=== PATIENT | male | born 1950 | race Caucasian/White ===

== ENCOUNTER 2022-11-05 08:59 | Outpatient (OUT) | payer MEDICARE, SELFPAY | END 2022-11-05 09:00 | disposition home or self-care (01) | LOC: LAB 09:07 | PROVIDERS: PCP Internal Medicine | DX: R97.20 Elevated prostate specific antigen [PSA] (principal) | CPT/HCPCS: 36415; 84153 ==

== ENCOUNTER 2023-07-22 09:17 | Outpatient (RCR) | payer MEDICARE, SELFPAY | END 2023-08-15 11:18 | disposition home or self-care (01) | LOC: PT 09:17 | PROVIDERS: PCP Internal Medicine; Visit Provider Internal Medicine | DX: M25.551 Pain in right hip (principal) | CPT/HCPCS: 97110; 97113; 97140; 97162 ==

== ENCOUNTER 2023-08-10 11:19 | Outpatient (OUT) | payer MEDICARE, SELFPAY | END 2023-08-10 11:20 | disposition home or self-care (01) | LOC: PST 11:19 | PROVIDERS: PCP Internal Medicine; Visit Provider Surgery | DX: Z01.818 Encounter for other preprocedural examination (principal) ==

== ENCOUNTER 2023-08-21 07:44 | Day surgery (SDC) | payer MEDICARE, SELFPAY ==
[2023-08-21 08:11] VITALS: BP 153/61; PULSE 77; TEMP 36.1; O2SAT 97; BMI 39.2
[2023-08-21 08:11] LABS: Glucometer 182 mg/dL (74-106)
--- NOTE | 2023-08-21 08:15 | PC.NURSE ---
No bruising or openings noted on back from fall this AM
[2023-08-21] MEDS: LACTATED RINGER'S SOLUTION 1,000 ML 50 ML IV (08:33)
[2023-08-21 10:21] VITALS: BP 108/62; PULSE 68; O2SAT 96
--- NOTE | 2023-08-21 10:26 | PM.GSPRC ---
Date of procedure: 08/21/23 Indications for Procedure: positive cologuard and 1st degree relative with from colon cancer in his 40s Pre-op diagnosis: + cologuard, high risk patient for colon cancer given family Hx Post-op diagnosis: other (83cm subcentimeter polyp removed with hot snare biopsy forceps, mild sigmoid diverticulosis ) Procedure: Previous colonoscopy: 2012 PROCEDURE: The patient was given IV conscious sedation per anesthesia.? The patient's SPO2 remained above 90% throughout the procedure. The colonoscope was inserted per rectum and advanced under direct vision to the cecum without difficulty.? The prep was adequate.? Findings: Terminal ileum os: normal Cecum/Ascending colon: normal Transverse colon: normal Descending/Sigmoid colon: 83cm subcentimeter polyp removed with hot snare biopsy forceps, mild diverticulosis Rectum/Anus: examined in normal and retroflexed positions and was normal Withdrawal Time was (minutes): 18 The colon was decompressed and the scope was removed.? The patient tolerated the procedure well. Recommendations/Plan: 1.? Lifestyle and dietary modifications as discussed 2.? F/U Biopsies 3.? F/U in clinic to discuss repeat c-scope timing, at least will be recommended for 5 year repeat as of now 4.? Discussed with the family Findings: 83cm subcentimeter polyp removed with hot snare biopsy forceps, mild sigmoid diverticulosis Anesthesia: MAC Surgeon: Herbert Nova Procedure Summary: diagnostic colonoscopy with 83cm subcentimeter polyp removed with hot snare biopsy forceps, Estimated blood loss (mL): 2 Specimens: 83cm subcentimeter polyp sent for pathology Complications: Yes Pathology: other Condition: stable Disposition: PACU
[2023-08-21 10:40] VITALS: BP 118/65; PULSE 62; O2SAT 95
== END 2023-08-21 10:59 | disposition home or self-care (01) ==
PROVIDERS: PCP Internal Medicine; Visit Provider Surgery
PROC: (CPT 45385; principal; 2023-08-21 09:30)
DX: R19.5 Other fecal abnormalities (principal); K57.30 Diverticulosis of large intestine without perforation or abscess without bleeding; Z80.0 Family history of malignant neoplasm of digestive organs; D12.5 Benign neoplasm of sigmoid colon; Z86.010 Personal history of colon polyps; Z79.82 Long term (current) use of aspirin; Z79.84 Long term (current) use of oral hypoglycemic drugs; Z79.899 Other long term (current) drug therapy; J45.909 Unspecified asthma, uncomplicated; E11.9 Type 2 diabetes mellitus without complications; I10 Essential (primary) hypertension; E78.00 Pure hypercholesterolemia, unspecified; N42.9 Disorder of prostate, unspecified; Z96.643 Presence of artificial hip joint, bilateral; Z95.1 Presence of aortocoronary bypass graft; Z98.52 Vasectomy status; I25.10 Atherosclerotic heart disease of native coronary artery without angina pectoris; G47.33 Obstructive sleep apnea (adult) (pediatric)
CPT/HCPCS: 45385; 36415; 82948; 88305; 99999; J2704

== ENCOUNTER 2023-08-27 16:57 | Emergency (ER) | payer MEDICARE, SELFPAY ==
[2023-08-27] VITALS (18 sets, daily range): BP systolic 149–202; BP diastolic 78–101; PULSE 73–90; TEMP 37.1; O2SAT 94–97; BMI 39.5
--- NOTE | 2023-08-27 17:30 | ECG_ITS ---
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
--- NOTE | 2023-08-27 17:32 | ED.DIZZY1 ---
HPI - Dizziness General Chief Complaint: Dizziness Stated Complaint: VERTIGO Time Seen by Provider: 08/27/23 17:02 Source: patient Mode of arrival: walk-in Limitations: no limitations History of Present Illness HPI Narrative: Patient has been experiencing dizziness for the last 2 months. He told me that he has been evaluated several times by Dr Ríos. He was all over the place with his story to the point where I had to tell him to start over and I had to diagram everything on the white board to review with him. He has not had any out-patient testing. he describes intermittent episodes of dizziness - sometimes described as spinning - like a classic vertigo - and other times described as sensation that he is going to pass out - like near-syncope. None of these episodes are associated with headache, chest pain, palpitations or shortness of breath. He denied ringing in the ears. he also denied recent visual changes - he told me about his cataracts and that occasionally his vision for the last several years will not be clear. He was prescribed doxycycline and oral steroid on 08/19/23 but did not start them until 08/21/23 after his colonoscopy and continued to take them until he saw Dr Ríos on 08/26/23. he complained that he was still having dizziness and Dr Ríos let him know that the prescribed meclizine was for dizziness, so the patient took his first dose yesterday afternoon and it helped. But this morning he became profoundly dizzy after eating breakfast and having coffee at [facility] and the meclizine did not help. He is also concerned because his legs were very weak and I had trouble getting around even after I got home - he says both legs are equally weak. Related Data Home Medications ?Medication ?Instructions ?Recorded ?Confirmed aspirin 81 mg tablet,delayed 81 mg PO DAILY 08/10/23 08/27/23 release (Adult Aspirin Regimen) atorvastatin 40 mg tablet 40 mg PO DAILY 08/10/23 08/27/23 carvedilol 25 mg tablet 25 mg PO Q12H 08/10/23 08/27/23 doxazosin 2 mg tablet 2 mg PO QPM 08/10/23 08/27/23 finasteride 5 mg tablet 5 mg PO DAILY 08/10/23 08/27/23 ipratropium 0.5 mg-albuterol 3 mg 3 ml inhalation Q6H PRN shortness 08/10/23 08/27/23 (2.5 mg base)/3 mL nebulization of breath or wheezing soln montelukast 10 mg tablet 10 mg PO DAILY 08/10/23 08/27/23 ramipril 10 mg capsule 10 mg PO BID 08/10/23 08/27/23 semaglutide 1 mg/dose (4 mg/3 mL) 1 mg subcut QWEEK 08/10/23 08/27/23 subcutaneous pen injector (Ozempic) tamsulosin 0.4 mg capsule 0.4 mg PO Q24H 08/10/23 08/27/23 dexamethasone 4 mg tablet 4 mg PO Q24H 08/27/23 08/27/23 doxycycline monohydrate 100 mg 100 mg PO Q12H 08/27/23 08/27/23 capsule meclizine 12.5 mg tablet 12.5 mg PO TID PRN dizziness 08/27/23 08/27/23 Allergies Allergy/AdvReac Type Severity Reaction Status Date / Time No Known Drug Allergies Allergy Verified 08/10/23 11:37 [facility] Medical History (Updated 08/27/23 @ 18:17 by Valerio Maher) COVID-19 ?U07.1 - COVID-19 (ICD-10) Bronchitis ?J40 - Bronchitis, not specified as acute or chronic (ICD-10) Pneumonia ?J18.9 - Pneumonia, unspecified organism (ICD-10) Hypoglycemia ?E16.2 - Hypoglycemia, unspecified (ICD-10) Kidney stones ?N20.0 - Calculus of kidney (ICD-10) GERD (gastroesophageal reflux disease) ?K21.9 - Gastro-esophageal reflux disease without esophagitis (ICD-10) Extremity edema ?R60.0 - Localized edema (ICD-10) Hypotension after procedure ?I95.81 - Postprocedural hypotension (ICD-10) Shingles ?B02.9 - Zoster without complications (ICD-10) Prostate disease ?N42.9 - Disorder of prostate, unspecified (ICD-10) Hypercholesteremia ?E78.00 - Pure hypercholesterolemia, unspecified (ICD-10) CAD (coronary artery disease) ?I25.10 - Atherosclerotic heart disease of [place] coronary artery without angina pectoris (ICD-10) DVT (deep venous thrombosis) ?I82.409 - Acute embolism and thrombosis of unspecified deep veins of unspecified lower extremity (ICD-10) Diabetes ?E11.9 - Type 2 diabetes mellitus without complications (ICD-10) Hypertension ?I10 - Essential (primary) hypertension (ICD-10) ADDISON (obstructive sleep apnea) ?G47.33 - Obstructive sleep apnea (adult) (pediatric) (ICD-10) Asthma ?J45.909 - Unspecified asthma, uncomplicated (ICD-10) Colon polyp ?K63.5 - Polyp of colon (ICD-10) Positive colorectal cancer screening using Cologuard test ?R19.5 - Other fecal abnormalities (ICD-10) Surgical History (Updated 08/10/23 @ 11:46 by Cathy Honeycutt NP) S/P epidural steroid injection ?Z92.241 - Personal history of systemic steroid therapy (ICD-10) History of surgical removal of skin lesion ?Z98.890 - Other specified postprocedural states (ICD-10) ?Z87.2 - Personal history of diseases of the skin and subcutaneous tissue (ICD-10) H/O vasectomy ?Z98.52 - Vasectomy status (ICD-10) H/O shoulder surgery ?Z98.890 - Other specified postprocedural states (ICD-10) S/P meniscectomy ?Z98.890 - Other specified postprocedural states (ICD-10) History of cardiac catheterization ?Z98.890 - Other specified postprocedural states (ICD-10) History of bilateral hip arthroplasty ?Z96.643 - Presence of artificial hip joint, bilateral (ICD-10) Hx of CABG (~07/2015) ?Z95.1 - Presence of aortocoronary bypass graft (ICD-10) H/O colonoscopy ?Z98.890 - Other specified postprocedural states (ICD-10) Family History (Updated 08/10/23 @ 11:46 by Cathy Honeycutt NP) Other Colon cancer Family history of diabetes mellitus Family history of heart disease Family history of hypertension Family history of myocardial infarction Family history of stroke Social History (Updated 08/21/23 @ 08:37 by Brandy Harris) Within the past year, how often did you have a drink containing alcohol: never Score interpretation: A score less than 4 is consistent with normal alcohol consumption. Smoking status: Never smoker Non-prescribed substance use: denies use Highest level of school completed/degree received: high school graduate Exam Narrative Exam Narrative: Nurses notes and vital signs reviewed and patient is not hypoxic. afebrile General: Well-appearing and in no apparent distress. Skin: Warm, dry, no pallor noted. No rash. Head: Normocephalic, atraumatic. Neck: Supple, non-tender. Eye: Pupils are equal, round and EOMI. No scleral icterus. Ears, Nose, Mouth, and Throat: TM are clear, no posterior oropharynx erythema or nasal mucosal hypertrophy, uvula is mid-line Oral mucosa is dry Cardiovascular: Regular Rate and Rhythm without murmur, gallop or rub. Respiratory: No accessory muscle use or respiratory distress. Lungs are clear to auscultation, no wheezing, rales or rhonchi Musculoskeletal: normal ROM, no calf or popliteal tenderness, no lower extremity edema/swelling GI: Abdomen is soft, non-distended. Normal bowel sounds. No tenderness to palpation. No rebound, guarding, or rigidity noted. Neurological: A&O x4. No cranial nerve dysfunction observed. No truncal ataxia. Moves all extremities. Sensation intact. Psychiatric: Cooperative and interactive. Normal mood and affect. Constitutional Vital Signs, click to edit/add: Last Vital Signs Temp 98.7 F 08/27/23 17:08 Pulse 75 08/27/23 18:50 Resp 15 08/27/23 18:50 BP 161/101 H 08/27/23 18:30 Pulse Ox 94 L 08/27/23 17:30 O2 Del Method Room Air 08/27/23 17:08 Course Vital Signs Vital signs: Vital Signs Pulse Oximetry 96 08/27/23 17:05 Temperature 98.7 F 08/27/23 17:08 Pulse Rate 75 08/27/23 18:50 Respiratory Rate 15 08/27/23 18:50 Blood Pressure 161/101 H 08/27/23 18:30 Pulse Oximetry 94 L 08/27/23 17:30 Oxygen Delivery Method Room Air 08/27/23 17:08 MDM - Dizziness MDM Narrative Medical decision making narrative: Patient was placed on residential program manager and EKG obtained. Blood drawn and sent for evaluation. He was sent for CT scanning of the brain in light of this new bilateral lower extremity weakness as well as continued dizziness . CT head was negative for worrisome pathology. CBC normal. BMP with normal electrolytes except for slightly low NA at 133 but glucose was markedly elevated at 492. Patient does not take insulin - he gets once weekly semaglutide injections. He told me that he had previously been taking metformin but stopped because it was giving me non-stop diarrhea . He told me that he believe(s) that I had blood drawn in May and my HbA1c was 9 and was around 7 the year before . He has never been prescribed insulin. Patient informed of results and was given 15 units SQ regular insulin. His recent dexamethasone use certainly could contribute to his elevated glucose level. He was discharged home and instructed to call his PCP to discuss his hyperglycemia and any additional meds to prescribe =-whether oral hypoglycemics or to start insulin. ED return if he worsens. Medical Records Attestation: I reviewed the patient's medical records. Lab Data Attestation: I reviewed the patient's lab results. Labs: Lab Results 08/27/23 Range/Units 17:10 WBC 9.7 (4.0-11.0) 10^3/uL RBC 5.51 (4.70-6.10) 10^6/uL Hgb 15.4 (14.0-18.0) g/dL Hct 47.1 (42.0-54.0) % MCV 85.5 (80.0-94.0) fL MCH 27.9 (25.9-34.0) pg MCHC 32.7 (29.9-35.2) g/dL RDW 13.2 (11.0-15.0) % Plt Count 259 (150-450) 10^3/uL MPV 10.6 (9.5-13.5) fL Neut % (Auto) 85.4 H (43.0-75.0) % Lymph % (Auto) 8.9 L (20.5-60.0) % [place] % (Auto) 4.7 (1.7-12.0) % Eos % (Auto) 0.0 L (0.9-7.0) % Baso % (Auto) 0.1 L (0.2-2.0) % Neut # (Auto) 8.3 H (1.4-6.5) 10^3/uL Lymph # (Auto) 0.9 L (1.2-3.8) 10^3/uL [place] # (Auto) 0.5 (0.3-0.8) 10^3/uL Eos # (Auto) 0.0 (0.0-0.7) 10^3/uL Baso # (Auto) 0.0 (0.0-0.1) 10^3/uL Abs Immat Gran (auto) 0.09 H (0.00-0.03) 10^3/uL Imm/Tot Granulo (auto) 0.9 H (0.0-0.5) % Sodium 133 L (136-145) mmol/L Potassium 4.6 (3.5-5.1) mmol/L Chloride 98 (98-107) mmol/L Carbon Dioxide 23.8 (21.0-32.0) mmol/L Anion Gap 15.8 BUN 18.0 (7.0-18.0) mg/dL Creatinine 1.22 (0.70-1.30) mg/dL Est GFR ( Amer) >60 (>=60) Est GFR (Non-Af Amer) 58 L (>=60) BUN/Creatinine Ratio 14.8 Glucose 492 H (74-106) mg/dL Calcium 9.6 (8.5-10.1) mg/dL Imaging Data CT scan - head: Attestation: I have reviewed the pertinent imaging results. Radiologist's impression: ITS Impressions Brain CT 08/27/23 17:40 IMPRESSION: No acute intracranial process is noted. Electronically authenticated by: JARROD DALE Date: 08/27/2023 17:58 ECG Data Attestation: I personally reviewed and interpreted this ECG as follows: Interpretation: EKG interpretation: Emergency Department physician interpretation. Normal sinus rhythm at 81bpm. Normal axis, normal intervals and no ST segment elevation or depression. Discharge Plan Discharge Stand Alone Forms: Portal Instructions Chief Complaint: Dizziness Clinical Impression: Acute hyperglycemia, Dizziness Patient Disposition: Home, Self-Care Time of Disposition Decision: 18:45 Prescriptions / Home Meds: No Action dexamethasone 4 mg tablet 4 mg PO Q24H doxycycline monohydrate 100 mg capsule 100 mg PO Q12H meclizine 12.5 mg tablet 12.5 mg PO TID PRN (Reason: dizziness) atorvastatin 40 mg tablet 40 mg PO DAILY carvedilol 25 mg tablet 25 mg PO Q12H doxazosin 2 mg tablet 2 mg PO QPM finasteride 5 mg tablet 5 mg PO DAILY ipratropium-albuterol 0.5 mg-3 mg(2.5 mg base)/3 mL solution for nebulization 3 ml INHALATION Q6H PRN (Reason: shortness of breath or wheezing) montelukast 10 mg tablet 10 mg PO DAILY ramipril 10 mg capsule 10 mg PO BID Ozempic 1 mg/dose (4 mg/3 mL) pen injector 1 mg SUBCUT QWEEK tamsulosin 0.4 mg capsule 0.4 mg PO Q24H aspirin [Adult Aspirin Regimen] 81 mg tablet,delayed release (DR/EC) 81 mg PO DAILY Print Language: Latvian Instructions: Dizziness (ED), Diabetic Hyperglycemia (ED) Referrals: MAC RÍOS MD [Primary Care Provider] - 1 week
[2023-08-27 17:37] LABS: Basophils Percent Auto 0.1 % (0.2-2.0); Hematocrit 47.1 % (42.0-54.0); Hemoglobin 15.4 g/dL (14.0-18.0); Immature Granulocytes Abs Auto 0.09 10^3/uL (0.00-0.03); Immature Granulocytes Pct Auto 0.9 % (0.0-0.5); Lymphocytes Absolute Auto 0.9 10^3/uL (1.2-3.8); Lymphocytes Percent Auto 8.9 % (20.5-60.0); Mean Corpuscular HGB Conc 32.7 g/dL (29.9-35.2); Mean Corpuscular Hemoglobin 27.9 pg (25.9-34.0); Mean Corpuscular Volume 85.5 fL (80.0-94.0); Mean Platelet Volume 10.6 fL (9.5-13.5); Monocytes Absolute Auto 0.5 10^3/uL (0.3-0.8); Monocytes Percent Auto 4.7 % (1.7-12.0); Neutrophils Absolute Auto 8.3 10^3/uL (1.4-6.5); Neutrophils Percent Auto 85.4 % (43.0-75.0); Platelet Count 259 10^3/uL (150-450); Red Blood Count 5.51 10^6/uL (4.70-6.10); Red Cell Distribution Width 13.2 % (11.0-15.0); White Blood Count 9.7 10^3/uL (4.0-11.0)
--- NOTE | 2023-08-27 17:40 | CT_ITS ---
The [address] [address] Patient Name: RAMYA WINN MRN: [id number] date: 1950 Sex: M Assigned Patient Location: ER Current Patient Location: ED.MAIN Accession/Order Number: [id number] Exam Date: 08/27/2023 17:40 Report Date: 08/27/2023 17:58 At the request of: MARIA T DAWN Procedure: CT stroke head/brain wo con CT stroke head/brain wo con, 08/27/2023 5:40 PM EDT INDICATION: bilateral leg weakness, dizziness COMPARISON: Prior CT of the head dated 06/29/2020 TECHNIQUE: Axial CT images of the brain from skull base to vertex, including portions of the face and sinuses, were obtained without contrast . Multiplanar reformatted images were generated and reviewed as needed. Dose reduction techniques were achieved by using automated exposure control and/or adjustment of mA and/or kV according to patient size and/or use of iterative reconstruction technique. FINDINGS: The cerebral sulci as well as ventricular system are appropriate for age. There is no intracranial mass, mass effect, midline shift, intra or extra-axial fluid collection or hemorrhage. Periventricular and centrum semiovale hypodensities are most likely consistent with microvascular ischemic changes. The visualized portions of orbits, mastoid air cells as well as paranasal sinuses are unremarkable. There is no suspicious osteolytic or osteoblastic lesion. CT/CT stroke head/brain wo con IMPRESSION: No acute intracranial process is noted. Electronically authenticated by: JARROD DALE Date: 08/27/2023 17:58
[2023-08-27] MEDS: 0.9 % SODIUM CHLORIDE 1,000 ML 999 ML IV (17:52)
[2023-08-27 18:04] LABS: Anion Gap 15.8; BUN Creatinine Ratio 14.8; Calcium 9.6 mg/dL (8.5-10.1); Carbon Dioxide 23.8 mmol/L (21.0-32.0); Chloride 98 mmol/L (98-107); Estimated GFR (African America >60 (>=60); Estimated GFR (Non-African Ame 58 (>=60); Glucose 492 mg/dL (74-106); Potassium 4.6 mmol/L (3.5-5.1); Sodium 133 mmol/L (136-145)
[2023-08-27] MEDS: INSULIN REGULAR 300 UNITS/3 ML 15 UNIT SUBQ (18:21)
[2023-08-27 19:10] LABS: Glucometer 362 mg/dL (74-106)
== END 2023-08-27 19:30 | disposition home or self-care (01) ==
PROVIDERS: Emergency Provider Emergency Medicine; PCP Internal Medicine
DX: R42 Dizziness and giddiness (principal); E11.65 Type 2 diabetes mellitus with hyperglycemia; Z79.82 Long term (current) use of aspirin; Z79.899 Other long term (current) drug therapy; Z98.890 Other specified postprocedural states; Z95.1 Presence of aortocoronary bypass graft; Z96.643 Presence of artificial hip joint, bilateral; Z98.52 Vasectomy status; Z86.010 Personal history of colon polyps; G47.33 Obstructive sleep apnea (adult) (pediatric); I10 Essential (primary) hypertension; I25.10 Atherosclerotic heart disease of native coronary artery without angina pectoris; E78.00 Pure hypercholesterolemia, unspecified; Z86.718 Personal history of other venous thrombosis and embolism; K21.9 Gastro-esophageal reflux disease without esophagitis; Z87.442 Personal history of urinary calculi; Z86.16 Personal history of COVID-19
CPT/HCPCS: 36415; 70450; 80048; 85025; 93005; 96360; 99285

== ENCOUNTER 2023-11-11 08:20 | Outpatient (OUT) | payer MEDICARE, SELFPAY ==
--- OUTSIDE RECORDS SUMMARY | 2023-11-11 08:25 | XMS_ITS ---
Patient Summarization (C-CDA 2.1 CCD) Created on: November 11, 2023 RAMYA WINN : 1950 Sex: Undifferentiated Author Organization Sample organization Care Team Providers Care Runner Out Name Role Phone MAC RÍOS JR Primary Care Physician AELNA RUIZ Admitting Unavailable ALENA RUIZ Attending Unavailable DR MAC RÍOS Primary Care Unavailable ALENA RUIZ Consulting Unavailable Joce RAM Attending Unavailable NON STAFF Attending Provider Unavailable NON STAFF Attending Unavailable NON STAFF Admitting Unavailable EDNA RIDDLE Attending Unavailable BUZZ CORTEZ Attending Unavailable BUZZ CORTEZ Attending Unavailable MAGGIE FELIZ Attending Unavailable MAC RÍOS JR Referring Unavailable Allergies Allergy Classification Reported Allergen(s) Allergy Type Date of Onset Reaction(s) Facility (2 sources) Ibuprofen; Translations: [ibuprofen] Drug Allergy [place]i (finding) [facility] (1 source) canagliflozin Drug Allergy 6 [facility] (1 source) Ibuprofen Drug Allergy 3 [facility] Encounters Encounter Date Encounter Type Care Provider Facility Start: 10-27-2023 End: 10-27-2023 ambulatory MAGGIE FELIZ [facility] Start: 09-01-2023 End: 09-01-2023 ambulatory BUZZ CORTEZ Not Available Start: 08-21-2023 End: 08-21-2023 ambulatory NON STAFF [facility] Start: 08-21-2023 End: 08-21-2023 ambulatory [facility] Work Phone: Start: 08-21-2023 End: 08-21-2023 Departed Referred [facility] Start: 07-29-2023 End: 07-30-2023 ambulatory EDNA RIDDLE Not Available Start: 04-23-2023 End: 04-23-2023 ambulatory BUZZ CORTEZ Not Available Start: 08-04-2022 End: 08-05-2022 ambulatory Joce Benson RAM Facility:[facility] Start: 07-30-2022 End: 07-31-2022 ambulatory ALENA RUIZ Facility: Start: 08-07-2021 End: 08-07-2021 Patient encounter procedure ALENA RUIZ [facility] Immunizations Immunization Date Immunization Notes Care Provider Jose Carlos martinez 02-14-2019 influenza virus vaccine, live, attenuated, for intranasal use ALENA RUIZ [facility] Medications Current Medications Medication Drug Class(es) Dates Sig (Normalized) Sig (Original) Albuterol (1 source) beta2-Adrenergic Agonist Start: 07-06-2019 ProAir HFA Inhalation, q6hr, Refill(s) 0 Start Date: 07/06/19 Status: Ordered Aspirin (1 source) Platelet Aggregation Inhibitor, Nonsteroidal Anti-inflammatory Drug Start: 07-06-2019 aspirin 81 mg, Refills(s) 0 Start Date: 07/06/19 Status: Ordered atorvastatin 40 mg oral tablet (1 source) HMG-CoA Reductase Inhibitor Start: 07-06-2019 take 40 mg by mouth once daily atorvastatin 40 mg, Oral, Daily, Refills(s) 0 Start Date: 07/06/19 Status: Ordered carvedilol 25 mg oral tablet (1 source) alpha-Adrenergic Hong, beta-Adrenergic Ohng Start: 07-06-2019 carvedilol 25 mg, Oral, Refills(s) 0 Start Date: 07/06/19 Status: Ordered finasteride 5 mg oral tablet (1 source) 5-alpha Reductase Inhibitor Start: 07-06-2019 take 5 mg by mouth once daily finasteride 5 mg, Oral, Daily, Refills(s) 0 Start Date: 07/06/19 Status: Ordered Fish Oils (1 source) Start: 07-06-2019 Fish Oil Oral, Refill(s) 0 Start Date: 07/06/19 Status: Ordered Ipratropium (1 source) Anticholinergic Start: 07-06-2019 ipratropium 500 microgram, QID, Refills(s) 0 Start Date: 07/06/19 Status: Ordered metFORMIN hydrochloride 500 mg oral tablet (1 source) Biguanide Start: 07-06-2019 metformin 500 mg, Oral, Refills(s) 0 Start Date: 07/06/19 Status: Ordered montelukast (1 source) Leukotriene Receptor Antagonist Start: 07-06-2019 montelukast 10 mg, Daily, Refills(s) 0 Start Date: 07/06/19 Status: Ordered Multi Vitamin+ (1 source) Start: 07-06-2019 Multi Vitamin+ Refill(s) 0 Start Date: 07/06/19 Status: Ordered OXcarbazepine (1 source) Anti-epileptic Agent Start: 07-06-2019 oxcarbazepine Oral, Refills(s) 0 Start Date: 07/06/19 Status: Ordered Ozempic (0.25 mg or 0.5 mg dose) (1 source) Start: 07-18-2019 Ozempic (0.25 mg or 0.5 mg dose) mg, SubCutaneous, qWeek, Refills(s) 0 Start Date: 07/18/19 Status: Ordered ramipril 10 mg oral tablet (1 source) Angiotensin Converting Enzyme Inhibitor Start: 07-06-2019 take 10 mg by mouth once daily ramipril 10 mg, Oral, Daily, Refills(s) 0 Start Date: 07/06/19 Status: Ordered Payers Date Payer Category Payer Self-pay 2011 Medicare [id number] 1959 Medicare [id number] 1959 Unknown [id number] 1950 Unknown [id number] 2.16.84 [id number] 1950 Unknown [id number] 2.16.8 [id number] 1950 Unknown [id number] 2.16.84 [id number] 1950 Unknown [id number] 2.16.84 [id number] 1950 Unknown [id number] [id number] 1950 Unknown [id number] 2.16.8 [id number] 1950 Unknown [id number] 2.16.8 [id number] Medicare Medicare [id number] Unknown [facility] Health Claims [id number] Problems Problem Classification Problem Date Documented Date Episodic/Chronic Asthma (1 source) Asthma 07-06-2019 Chronic Calculus of urinary tract (1 source) Kidney stone 07-06-2019 Episodic Conditions associated with dizziness or vertigo (2 sources) Other peripheral vertigo, unspecified ear; Translations: [Dizziness and giddiness] Onset: 10-27-2023 Episodic Diabetes mellitus without complication (1 source) Diabetes mellitus 07-06-2019 Chronic Essential hypertension (1 source) Hypertensive disorder 07-06-2019 Chronic Genitourinary symptoms and ill-defined conditions (2 sources) Incontinence; Translations: [Post-micturition incontinence ] 07-18-2019 Chronic Genitourinary symptoms and ill-defined conditions (3 sources) Delay when starting to pass urine; Translations: [Dysuria] 07-18-2019 Episodic Hyperplasia of prostate (6 sources) Benign prostatic hypertrophy with outflow obstruction; Translations: [Benign prostatic hyperplasia with lower urinary tract symptoms] Onset: 08-07-2021 Chronic Inflammatory conditions of male genital organs (1 source) 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-18-2019 Chronic Inflammatory conditions of male genital organs (1 source) Prostatitis 07-06-2019 Episodic Other ear and sense organ disorders (1 source) Sensorineural hearing loss, bilateral; Translations: [Sensorineural hearing loss, bilateral] Onset: 10-27-2023 Chronic Other ear and sense organ disorders (1 source) Tinnitus, bilateral; Translations: [Tinnitus, bilateral] Onset: 10-27-2023 Episodic Other ear and sense organ disorders (1 source) Other specified disorders of ear, bilateral; Translations: [Other specified disorders of ear, bilateral] Onset: 10-27-2023 Episodic Other nervous system disorders (1 source) Ataxia, unspecified; Translations: [Ataxia, unspecified] Onset: 10-27-2023 Episodic Other screening for suspected conditions (not mental disorders or infectious disease) (1 source) Encounter for screening for malignant neoplasm of prostate; Translations: [Screening for malignant neoplasm done] Onset: 08-07-2021 Episodic Procedures Date Procedure Procedure Detail Performing Clinician Start: 07-30-2022 PSA screening ALENA RUIZ Comment on above: Performed By: #### P SAD #### [facility] [address] [place] [address] Dr. Kala Funes Start: 05-11-2009 radio frequency neurotomy ALENA RUIZ Coronary artery bypa ss graft ALENA RUIZ History of operative procedure on knee ALENA RUIZ History of operative procedure on shoulder ALENA RUIZ Prosthetic arthropla sty of the hip ALENA RUIZ Results Test Name Value Interpretation Reference Range Facil itsona Giles 08-21-2023 L Specimen: [id number] Received: 08/24/23 Status: AMBAR Nicholson Num: [id number] Spec Type: Surgical Subm Dr: NON STAFF Tissues: A Colon Biopsy (SPLENIC FLEXURE POLYP) Procedures: HE/2, Gross/Micro L4 Age/ Patient Sex Location Account Attending Physician Ramya Winn 73/M LABELL [id number] NON STAFF SPEC NUM: [id number] RECD: 08/24/23 STATUS: AMBAR REQ NUM: [id number] ROLAND: 08/21/[address]: NON STAFF ENTERED: 08/24/[address]: [facility] SPEC TYPE: Surgical DEPT: ESEQUIEL PEREIRA ORDERED: HE/2, Gross/Micro L4 ORDERED: HE/2, Gross/Micro L4 Pathological Diagnosis Colon polyp biopsy removal at splenic flexure: -Multiple fragments of tubular adenoma without high-grade features Gross Description In formalin labeled splenic flexure polyp are multiple pieces of willis-pink and brown mucosa ranging in size from 0.1 x 0.1 x 0.1 cm to 0.8 x 0.2 x 0.1 cm. Submitted entirely in A1. MARITZA/PETAR Clinical history: Splenic flexure polyp at 83 cm, mild sigmoid diverticulosis, path pending CPT Codes 27143 ---- ---- Specimen: [id number] Received: 08/24/23 Status: AMBAR Nicholson Num: [id number] Spec Type: Surgical Subm Dr: JARROD STAFF Tissues: A Colon Biopsy (SPLENIC FLEXURE POLYP) Procedures: HE/Zakia, Gross/Micro L4 ---- Patient: Ramya Winn [id number] (Continued) ---- Signed (signature on file) Joshua-Jitendra Funes MD 08/26/23 1148 Normal [facility] Patient Letter FTon 2022 Patient Letter [facility] November 25, 2022 RAMYA WINN [address] [place] [address] : 1950 Dear Mr. Ramya Carlsonnuria, We have been trying to reach you concerning having the MRI done of your prostate due to your elevated PSA level. You scheduled to have this done in July, but wanted to postpone it due to other things you needed to take care of at the time. We certainly understand this, but want to remind you of the importance of having the MRI done or a Prostate biopsy to rule out prostate cancer. Please call the office as soon as possible so we can get you scheduled for either or both of these tests/procedures. Thank you for your cooperation in this matter, so we can continue to provide you with quality care. Sincerely, Joce Ram M.D., F.A.C.S. [facility] option #3 SENT REGULAR/CERTIFIED MAIL [facility] Screenson 08-06-2022 Screens [id number]. 00CD:[id number] [facility] Ambulatory Visit Summaryon 0 08-04-2022 Ambulatory Visit Summary PA RAMYA Marquez :1950 Visit Date:08/04/2022 Ambulatory Visit Instructions Your Diagnosis Elevated PSA BPH with obstruction/lower urinary tract symptoms Tests Performed Urnls Dip Stick Auto w/o Microscopy POC [id number] MRI Pelvis (Soft Tissue) w/ + w/o contrast -- Results Pending -- Please visit your patient portal for your results or contact your primary care physician. Your Care Team Attending Physician - RADHA BENAVIDES, Joce Benson Primary Care Physician - MAC RÍOS JR, DO This Is Your Medications List Contact prescribing physician if questions or concerns albuterol (ProAir HFA) aspirin atorvastatin carvedilol finasteride ipratropium metformin montelukast oxcarbazepine ramipril semaglutide (Ozempic (0.25 mg or 0.5 mg dose)) Procedures Performed radio frequency neurotomy (05/11/2009), CABG - Coronary artery bypass graft, Hip replacement, History of knee surgery, History of shoulder surgery. Discharge Vitals Heart Rate (Peripheral) 72 Respiratory Rate 16 Blood Pressure 132/88 Height 172 cm Height 68 in Weight 123.2 kg Weight 271.04 lb BMI 41.64 What to do next You Need to Schedule the Following Appointments Follow Up with RADHA BENAVIDES, KRISSY Arana When: Where: [facility] [address], [place] [address]- Medications What How Much When Instructions Unchanged albuterol (ProAir HFA) Inhalation Every 6 hours Contact prescribing physician if questions or concerns Unchanged aspirin 81 Milligram Contact prescribing physician if questions or concerns Unchanged atorvastatin 40 Milligram By Mouth Every day Contact prescribing physician if questions or concerns Unchanged carvedilol 25 Milligram By Mouth Contact prescribing physician if questions or concerns Unchanged finasteride 5 Milligram By Mouth Every day Contact prescribing physician if questions or concerns Unchanged ipratropium 500 Microgram 4 times a day Contact prescribing physician if questions or concerns Unchanged metformin 500 Milligram By Mouth Contact prescribing physician if questions or concerns Unchanged montelukast 10 Milligram Every day Contact prescribing physician if questions or concerns Unchanged oxcarbazepine By Mouth Contact prescribing physician if questions or concerns Unchanged ramipril 10 Milligram By Mouth Every day Contact prescribing physician if questions or concerns Unchanged semaglutide (Ozempic (0.25 mg or 0.5 mg dose)) Subcutaneous Every week Contact prescribing physician if questions or concerns Test Results Urnls Dip Stick Auto w/o Microscopy POC [id number] (08/04/2022) Bilirubin Urine Dipstick - Negative Blood Urine Dipstick - Negative Glucose Urine Dipstick - 2+ 500 mg/dl Ketones Urine Dipstick - Negative Leukocytes Urine Dipstick - Trace Nitrite Urine Dipstick - Negative Protein Urine Dipstick - Negative Specific [place] Urine Dipstick - 1.010 Urine Appearance Urine Dipstick - Clear Urine Color Urine Dipstick - Yellow Urobilinogen Urine Dipstick - Normal 0.2-1 EU/dl pH Urine Dipstick - 5.5 Allergies ibuprofen (Hiccups) Problems Ongoing - Any problem that you are currently receiving treatment for. Asthma Balanitis Benign prostatic hyperplasia (BPH) with post-void dribbling BPH with obstruction/lower urinary tract symptoms Diabetes Dysuria Elevated PSA Hesitancy Hypertension Mixed stress and urge incontinence Nephrolithiasis Nocturia Post-void dribbling Prostatitis Education Materials Prostate Cancer Screening The prostate is a walnut-sized gland that is located below the bladder and in front of the rectum in males. The function of the prostate (prostate gland) is to add fluid to semen during ejaculation. Prostate cancer is the second most common type of cancer in men. A screening test for cancer is a test that is done before cancer symptoms start. Screening can help to identify cancer at an early stage, when the cancer can be treated more easily. The recommended prostate cancer screening test is a blood test called the prostate-specific antigen (PSA) test. PSA is a protein that is made in the prostate. As you age, your prostate naturally produces more PSA. Abnormally high PSA levels may be caused by: ? Prostate cancer. ? An enlarged prostate that is not caused by cancer (benign prostatic hyperplasia, BPH). This condition is very common in older men. ? A prostate gland infection (prostatitis). ? Medicines to assist with hair growth, such as finasteride. Depending on the PSA results, you may need more tests, such as: ? A physical exam to check the size of your prostate gland. ? Blood and imaging tests. ? A procedure to remove tissue samples from your prostate gland for testing (biopsy). Who should have screening? Screening recommendations vary based on age. ? If you are younger than age 40, screening is not recommended. ? If y (more content not included)... Normal [facility] Patient Educationon 08-05-19 23 Patient Education Oncology Prostate Cancer Screening The prostate is a walnut-sized gland that is located below the bladder and in front of the rectum in males. The function of the prostate (prostate gland) is to add fluid to semen during ejaculation. Prostate cancer is the second most common type of cancer in men. A screening test for cancer is a test that is done before cancer symptoms start. Screening can help to identify cancer at an early stage, when the cancer can be treated more easily. The recommended prostate cancer screening test is a blood test called the prostate-specific antigen (PSA) test. PSA is a protein that is made in the prostate. As you age, your prostate naturally produces more PSA. Abnormally high PSA levels may be caused by: ? Prostate cancer. ? An enlarged prostate that is not caused by cancer (benign prostatic hyperplasia, BPH). This condition is very common in older men. ? A prostate gland infection (prostatitis). ? Medicines to assist with hair growth, such as finasteride. Depending on the PSA results, you may need more tests, such as: ? A physical exam to check the size of your prostate gland. ? Blood and imaging tests. ? A procedure to remove tissue samples from your prostate gland for testing (biopsy). Who should have screening? Screening recommendations vary based on age. ? If you are younger than age 40, screening is not recommended. ? If you are age 40?54 and you have no risk factors, screening is not recommended. ? If you are younger than age 55, ask your health care provider if you need screening if you have one of these risk factors: ? Being of -[place] descent. ? Having a family history of prostate cancer. ? If you are age 55?69, talk with your health care provider about your need for screening and how often screening should be done. ? If you are older than age 70, screening is not recommended. This is because the risks that screening can cause are greater than the benefits that it may provide (risks outweigh the benefits). If you are at high risk for prostate cancer, your health care provider may recommend that you have screenings more often or start screening at a younger age. You may be at high risk if you: ? Are older than age 55. ? Are -[place]. ? Have a father, brother, or uncle who has been diagnosed with prostate cancer. The risk may be higher if your family member's cancer occurred at an early age. What are the benefits of screening? There is a small chance that screening may lower your risk of dying from prostate cancer. The chance is small because prostate cancer is typically a slow-growing cancer, and most men with prostate cancer from a different cause. What are the risks of screening? The main risk of prostate cancer screening is diagnosing and treating prostate cancer that would never have caused any symptoms or problems (overdiagnosis and overtreatment). PSA screening cannot tell you if your PSA is high due to cancer or a different cause. A prostate biopsy is the only procedure to diagnose prostate cancer. Even the results of a biopsy may not tell you if your cancer needs to be treated. Slow-growing prostate cancer may not need any treatment other than monitoring, so diagnosing and treating it may cause unnecessary stress or other side effects. A prostate biopsy may also cause: ? Infection or fever. ? A false negative. This is a result that shows that you do not have prostate cancer when you actually do have prostate cancer. Questions to ask your health care provider ? When should I start prostate cancer screening? ? What is my risk for prostate cancer? ? How often do I need screening? ? What type of screening tests do I need? ? How do I get my test results? ? What do my results mean? ? Do I need treatment? Contact a health care provider if: ? You have difficulty urinating. ? You have pain when you urinate or ejaculate. ? You have blood in your urine or semen. ? You have pain in your back or in the area of your prostate. ? You have trouble getting or maintaining an erection (erectile dysfunction, ED). Summary ? Prostate cancer is a common type of cancer in men. The prostate (prostate gland) is located below the bladder and in front of the rectum. This gland adds fluid to semen during ejaculation. ? Prostate cancer screening may identify cancer at an early stage, when the cancer can be treated more easily. ? The prostate-specific antigen (PSA) test is the recommended screening test for prostate cancer. ? Discuss the risks and benefits of prostate cancer screening with your health care provider. If you are age 70 or older, screening is likely to lead to more risks than benefits (risks outweigh the benefits). This information is not intended to replace advice given to you by your health care provider. Make sure you discuss any questions you have with your health care provider. Document Released: 02/05/2018 Document R (more content not included)... Normal [facility] Urology Office/Clinic Noteon 08-04-2022 Urology Office/Clinic Note Chief Complaint Elevated PSA HPI Staff 1 year with PSA. PSA done 07/30/22 is 4.95 and previous done 07/03/21 was 0.39. Previous dx of BPH with LUTS. Dysuria: no Incomplete bladder emptying: no Hematuria: no Frequency: less than 1 in 5x Urgency: less than 1 in 5x Nocturia: 1x Stream: straining and intermittency less than 1 in 5x and weak less than half of the time Leaking: a little dribbling Post void dripping: no Wearing pads/ Depends: every now and then he wears a pad Urge incontinence: no Stress incontinence: no Incontinence without Sensory Awareness: no Abdominal pain: no Flank pain: no Sexual complaints: no History of Present Illness Tests reviewed: reviewed UA, PSA. I have reviewed the previous health record information and history for this patient from Dr. Ram. I have reviewed and verified the staff HPI to be accurate for this encounter. There have been no associated fever, chills, flank pain, or blood in the urine. Denies any urinary infections since last encounter. Review of Systems PHQ Score Initial Depression Screen Score: 0 ROS - Provider Constitutional: denies weight loss, denies hot flashes. Eyes: denies eye problems. Gastrointestinal: denies nausea, denies vomiting. Cardiovascular: denies chest pain or angina. Integumentary: no dryness Musculoskeletal: denies musculoskeletal symptoms. ENMT: denies otolaryngeal symptoms. Respiratory: no shortness of breath. Heme/Lymph: denies easy bleeding tendency, denies easy bruising tendency. Psychiatric: no confusion, no anxiety. Genitourinary: See HPI. Physical Exam Vitals & Measurements HR: 72(Peripheral) RR: 16 BP: 132/88 HT: 68 in HT: 172 cm WT: 123.2 kg WT: 271.04 lb BMI: 41.64 General Appearance: alert, no distress, well nourished, well developed male. Genitourinary: normal scrotum, normal testes, normal urethra, normal epididymis, normal vas deferens/spermatic cord. Flank Pain: none. Bladder: nonpalpable. Assessment/Plan 1. Elevated PSA (R97.20: Elevated prostate specific antigen [PSA]) PSA: 07/04/20 - 0.50 (1.0 Finasteride effect) 07/03/21 - 0.39 (0.8 Finasteride effect) 07/30/22 - 4.95 (9.9 Finasteride effect) Has never had a prostate bx. States his PCP thought he had an infection, completed abx course. Did not notice any changes. Discussed MRI of prostate and TRUS/bx even if MRI is neg. Denies burning, odor, other infection sxs. Will schedule MRI and TRUS of Prostate with Biopsy. The procedural risks, benefits, details, and treatment alternatives have been discussed with the patient. These include minimal to severe bleeding, infection, blood in the semen, inability to urinate, and severe infection requiring hospitalization and IV antibiotics, among others. Full informed consent has been obtained. Will order Local anesthesia. 2. BPH with obstruction/lower urinary tract symptoms (N40.1: Benign prostatic hyperplasia with lower urinary tract symptoms) UA today shows trace leuks. Taking Finasteride 5 mg QD. IPSS 7. Intermittent slow stream. Stopped Flomax, does not recall why but last OV note states PCP stopped it due to pt getting up 3-5x/night which helped a lot. Follow-up With When Contact Information RADHA BENAVIDES, Joce Benson, URL [facility] [address], [place] [address]- Additional Instructions: schedule mri, trus/bx Patient Education Prostate Cancer Screening I, Renetta Lay, personally scribed for Dr. Ram on 08/04/2022 12:52:54. . Documentation recorded by the scribe, Renetta Lay, accurately reflects the services(s) I performed and decisions made by me. Authenticated by Dr. Ram on 08/04/2022 12:54:20. Problem List/Past Medical History Ongoing Asthma Balanitis Benign prostatic hyperplasia (BPH) with post-void dribbling BPH with obstruction/lower urinary tract symptoms Diabetes Dysuria Elevated PSA Hesitancy Hypertension Mixed stress and urge incontinence Nephrolithiasis Nocturia Post-void dribbling Prostatitis Historical No qualifying data Procedure/Surgical History radio frequency neurotomy (05/11/2009), CABG - Coronary artery bypass graft, Hip replacement, History of knee surgery, History of shoulder surgery. Medications aspirin, 81 mg atorvastatin, 40 mg, Oral, Daily carvedilol, 25 mg, Oral finasteride, 5 mg, Oral, Daily ipratropium, 500 mcg, QID metformin, 500 mg, Oral montelukast, 10 mg, Daily oxcarbazepine, Oral Ozempic (0.25 mg or 0.5 mg dose), SubCutaneous, qWeek ProAir HFA, Inhalation, q6hr ramipril, 10 mg, Oral, Daily Allergies ibuprofen (Hiccups) Social History Alcohol - Denies Alcohol Use, 07/18/2019 Tobacco - Denies Tobacco Use, 07/18/2019 Never (less than 100 in lifetime) Tobacco Use:. Never Smokeless Tobacco Use:., 08/07/2021 Family History Family history is unknown Immunizations Vaccine Date Status influenza virus vaccine, (more content not included)... [facility] Comment on above: Result Comment: Elec tronically Signed By: Joce RAM MD\.br\Date and Time Signed: 08/04/22 12:54 EDT\.br\Electronically Co-Signed By: Renetta Lay\.br\Date and Time Co-Signed: 08/04/22 12:53 EDT [facility] 08-01-2022 Lab Reports [id number] CD:127 [facility] Provider Letteron 07-10-2022 Provider Letter July 10, 2022 RAMYA WINN [address] [place] [address] RAMYA WINN 1950 Dear Ramya, We have been trying to reach you with no success. You have an appointment with Alena Ruiz PA-C on 08/13/22 which will need to be rescheduled since he/she will be out of the office that day. Please contact the office at the number listed below to get this appointment rescheduled at your earliest convenience. Thank you for your prompt attention to this matter. Sincerely, [facility] [address], [place] [address] [facility] Social History Date Type Detail Facility Start: 08-07-2021 Tobacco smoking status Never s moked tobacco (finding) [facility] Start: 1950 Sex Assigned At Male [facility] Tobacco smoking status Never [facility] Sex Assigned At Male [facility] Vital Signs Date Time Vital Sign Value Performing Clinician Felix eagn 08-07-2021 11:33-0400 Blood Pressure Location ALENA RUIZ [facility] 08-07-2021 11:33-0400 Diastolic blood pressure 78 mm[Hg] ALENA RUIZ [facility] 08-07-2021 11:33-0400 Heart rate 68 /min ALENAGINA RUIZ [facility] [employer] 08-07-2021 11:33-0400 Respiratory rate 16 /min ALENAGINA RUIZ [facility] 08-07-2021 11:33-0400 Systolic blood pressure 124 mm[Hg] ALENA RUIZ [facility] [employer] Evaluation + Plan note Laboratory Note Date & Type Note Facility Evaluation + Plan note Future Appointments Appointment Date:08/13/2022 10:00:00 AM Scheduled Provider:ALENA RUIZ PA-C Location:[facility] Appointment Type:URO Office Visit Future Scheduled TestsPSA Total 08/07/22 [facility] Evaluation note Note Date & Type Note Facility Evaluation note No assessment information availa [facility] Work Phone: Hospital course Narrative Note Date & Type Note Facility Hospital course Narrative No data available for this section [facility] Hospital Discharge instructions Note Date & Type Note Facility Hospital Discharge instructions No data available for this section [facility] Victorina Summary Purpose Family History No Family History Records FoundNo Family History Records FoundNo Family History Records FoundNo Family History Records FoundNo Family History Records Found Advance Directives No Advanced Directives Records FoundNo Advanced Directives Records FoundNo Advanced Directives Records FoundNo Advanced Directives Records FoundNo Advanced Directives Records Found Additional Source Comments (unrecognized sect ion and content) No Status Records FoundNo Status Records FoundNo Status Records FoundNo Status Records FoundNo Status Records Found INFORMATION SOURCE (unrecogn ized section and content) DATE CREATED AUTHOR 08/03/2022 [facility] DATE CREATED AUTHOR AUTHOR'S ORGANIZ ATION 11/25/2022 [facility] DATE CREATED AUTHOR AUTHOR'S ORGANIZ ATION 08/27/2023 [facility] DATE CREATED AUTHOR AUTHOR'S ORGANIZ ATION 09/03/2023 [facility] EPIC DATE CREATED AUTHOR AUTHOR'S ORGANIZ ATION 10/28/2023 [facility] Care Teams (unrecognized sec tion and content) Team Status: Inactive Member Role Status Dates NON STAFF Attending Provider Active Start: 2023 End: August 21, 2023 Goals (unrecognized section and content) Goals may be documented in a n alternate section FOR RECORDS PERTAINING TO PATIENTS WHO ARE OR HAVE BEEN ENROLLED IN A CHEMICAL DEPENDENCY/SUBSTANCEABUSE PROGRAM, SOME INFORMATION MAY BE OMITTED. This clinical summary was aggregated from multiple sources. Caution should be exercised in using it in the provision of clinical care. This summary normalizes information from multiple sources, and as a consequence, information in this document may materially change the coding, format and clinical context of patient data. In addition, data may be omitted in some cases. CLINICAL DECISIONS SHOULD BE BASED ON THE PRIMARY CLINICAL RECORDS. [employer] provides no warranty or guarantee of the accuracy or completeness of information in this document.
--- NOTE | 2023-11-11 08:36 | MR_ITS ---
The [address] [address] Patient Name: RAMYA WINN MRN: [id number] date: 1950 Sex: M Assigned Patient Location: LAB Current Patient Location: Accession/Order Number: [id number] Exam Date: 11/11/2023 08:55 Report Date: 11/12/2023 05:42 At the request of: NON-STAFF PHYSICIAN Procedure: MR head/brain wo/w con PROCEDURE: MR head/brain wo/w con COMPARISON: None. HISTORY: Dizziness And Giddiness R42, Vertigo TECHNIQUE: A variety of imaging planes and parameters were utilized for visualization of suspected pathology. Images were performed without and/or with intravenous contrast. FINDINGS: IACS: No evidence of acoustic schwannoma or other posterior fossa mass. INNER EARS: No abnormal signal intensity. MIDDLE EARS: No fluid or abnormal soft tissue. MASTOIDS: No fluid or abnormal soft tissue. SKULL BASE: Negative. Cavernous sinus and Meckel's caves are normal. CEREBRUM: No edema, hemorrhage, mass, acute infarction, or inappropriate atrophy. CEREBELLUM: No edema, hemorrhage, mass, acute infarction, or inappropriate atrophy. BRAINSTEM: No edema, hemorrhage, mass, acute infarction, or inappropriate atrophy. CSF SPACES: Ventricles, cisterns, and sulci are appropriate for age. No hydrocephalus, subarachnoid hemorrhage, or mass. SINUSES: Fluid versus mucus filled right mastoid air cells. Paranasal sinuses are clear. ORBITS: Limited views are unremarkable. OTHER: No abnormal meningeal or parenchymal enhancement. MR/MR head/brain wo/w con IMPRESSION: 1. No appreciable fluid or abnormal soft tissue within the middle or inner ear bilaterally. No abnormal enhancement. 2. The majority of the right mastoid air cells are fluid/mucus filled. Mastoiditis? Electronically authenticated by: GLADYS KELSEY Date: 11/12/2023 05:42
[2023-11-11 08:50] LABS: Estimated GFR (African America >60 (>=60); Estimated GFR (Non-African Ame >60 (>=60)
== END 2023-11-11 08:21 | disposition home or self-care (01) ==
LOC: LAB 08:20
PROVIDERS: PCP Internal Medicine
DX: R42 Dizziness and giddiness (principal); H90.3 Sensorineural hearing loss, bilateral
CPT/HCPCS: 36415; 70553; 82565; A9575

== ENCOUNTER 2023-11-18 09:18 | Outpatient (OUT) | payer MEDICARE, SELFPAY ==
[2023-11-18 11:20] LABS: Prostate Specific Antigen Dx 0.46 ng/mL (<=4.00)
== END 2023-11-18 09:19 | disposition home or self-care (01) ==
LOC: LAB 09:20
PROVIDERS: PCP Internal Medicine; Visit Provider Urology
DX: R97.20 Elevated prostate specific antigen [PSA] (principal)
CPT/HCPCS: 36415; 84153

== ENCOUNTER 2024-12-07 08:47 | Outpatient (OUT) | payer MEDICARE, SELFPAY ==
--- OUTSIDE RECORDS SUMMARY | 2024-12-07 09:02 | XMS_ITS | CCD ---
Author Organization [facility] Inform ion Partnership [facility] Care Team Providers Care Pellet Machine Operator Name Role Phone SANYA RÍOS JR Primary Care Physician [phone] ALENA RUIZ Admitting Unavailable ALENA RUIZ Attending Unavailable DR SANYA RÍOS Primary Care Unavailable ALENA RUIZ Consulting Unavailable Joce RAM Attending Unavailable NON STAFF Attending Provider Unavailable NON STAFF Attending Unavailable NON STAFF Admitting Unavailable MAGGIE MCLEOD Attending Unavailable SANYA RÍOS JR Referring Unavailable MAGGIE MCLEOD Attending Unavailable Sanya Ríos MD Primary Care Provider [phone] Unavailable Primary Care Provider UnavailBUZZ Sprague Attending Unavailable BUZZ CORTEZ Attending Unavailable BUZZ CORTEZ Attending Unavailable BUZZ CORTEZ Attending Unavailable BUZZ CORTEZ Attending Unavailable BUZZ CORTEZ Attending Unavailable BUZZ CORTEZ Attending Unavailable Allergies Allergy Classification Reported Allergen(s) Allergy Type Date of Onset Reaction(s) Facility (2 sources) Ibuprofen; Translations: [ibuprofen] Drug Allergy aCli (finding) [facility] (1 source) canagliflozin Drug Allergy 6 [facility] (1 source) Ibuprofen Drug Allergy 3 [facility] Medications Current Medications Medication Drug Class(es) Dates Sig (Normalized) Sig (Original) Albuterol (1 source) beta2-Adrenergic Agonist Start: 07-06-2019 ProAir HFA Inhalation, q6hr, Refill(s) 0 Start Date: 07/06/19 Status: Ordered Aspirin (20 sources) Platelet Aggregation Inhibitor, Nonsteroidal Anti-inflammatory Drug Start: 07-06-2019 aspirin 81 mg, Refills(s) 0 Start Date: 07/06/19 Status: Ordered take 1 tablet by mouth in the ks rning aspirin 81 MG EC tablet Take 81 mg by mouth in the morning. Active aspirin 81 mg ch ewable tablet Chew 1 tablet (81 mg total) and swallow in the morning. Active atorvastatin 40 mg oral tablet (20 sources) HMG-CoA Reductase Inhibitor Start: 07-06-2019 take 40 mg by mouth once daily atorvastatin 40 mg, Oral, Daily, Refills(s) 0 Start Date: 07/06/19 Status: Ordered carvedilol 25 mg oral tablet (20 sources) alpha-Adrenergic Hong, beta-Adrenergic Hong Start: 07-06-2019 carvedilol 25 mg, Oral, Refills(s) 0 Start Date: 07/06/19 Status: Ordered take 1 tablet by mouth in the ks rning carvedilol (Coreg) 6.25 MG tablet Take 6.25 mg by mouth in the morning and 6.25 mg in the evening. Take with meals. Active 168 hr cloNIDine 0.03257 mg/hr transdermal system (4 sources) Central alpha-2 Adrenergic Agonist cloNIDine (CATAPRES-TTS) 0.1 mg/[address] 1 patch on the skin once a week. Active docosahexaenoic acid/epa (FISH OIL ORAL) (4 sources) docosahexaenoic acid/epa (FISH OIL ORAL) Active doxazosin 2 mg oral tablet (20 sources) alpha-Adrenergic Hong Start: 07-22-19 take 1 tablet by mouth once daily at bedtime doxazosin (Cardura) 2 MG tablet TAKE 1 TABLET BY MOUTH EVERY NIGHT AT BEDTIME. HOLD IF BLOOD PRESSURE IS LESS THAN 100 07/22/2023 Active finasteride 5 mg oral tablet (20 sources) 5-alpha Reductase Inhibitor Start: 07-06-19 take 5 mg by mouth once daily finasteride 5 mg, Oral, Daily, Refills(s) 0 Start Date: 07/06/19 Status: Ordered Fish Oils (20 sources) Start: 07-06-19 Fish Oil Oral, Refill(s) 0 Start Date: 07/06/19 Status: Ordered omega-3 (FISH OI L) 300 MG capsule Take by mouth Daily Active Ipratropium (20 sources) Anticholinergic Start: 07-06-2019 ipratropium 50 0 microgram, QID, Refills(s) 0 Start Date: 07/06/19 Status: Ordered ipratropium (Atr ovent) 17 MCG/ACT inhaler Inhale. Active ipratropium (ATR OVENT) 42 mcg (0.06 %) nasal spray Administer 2 sprays into each nostril in the morning and 2 sprays at noon and 2 sprays in the evening and 2 sprays before bedtime. Active Q-Nvvewywdhzvw-Xewxi-B12-B6 (Metanx) 3-90.314-2-35 MG capsule (19 sources) H-Omfrriimeqfy-L lgae-B12-B6 (Metanx) 3-90.314-2-35 MG capsule Take by mouth. Active meclizine hydrochloride 12.5 mg oral tablet (4 sources) Antiemetic take 1 tablet by mouth three times daily as needed for dizziness meclizine (ANTIVERT) 12.5 mg tablet Take 1 tablet (12.5 mg total) by mouth 3 (three) times a day as needed for dizziness. Active metFORMIN hydrochloride 500 mg oral tablet (1 source) Biguanide St ar t: 20 metformin 500 mg, Oral, Refills(s) 0 Start Date: 07/06/19 Status: Ordered montelukast (20 sources) Leukotriene Receptor Antagonist St ar t: 20 montelukast 10 mg, Daily, Refills(s) 0 Start Date: 07/06/19 Status: Ordered montelukast (Sin gulair) 10 MG tablet Take 10 mg by mouth. Active Multi Vitamin+ (1 source) Start: 07-06-2019 Multi Vitamin+ Refill(s) 0 Start Date: 07/06/19 Status: Ordered Multiple Vitamin (multivitamin) tablet (19 sources) take 1 tablet by mouth in the morning Multiple Vitamin (multivitamin) tablet Take 1 tablet by mouth in the morning. Active Multiple Vitamins-Minerals (CENTRUM SILVER PO) (13 sources) Multiple Vitamins-Minerals (CENTRUM SILVER PO) Take by mouth Active mv-min/folic/K1/lycop en/lutein (CENTRUM SILVER MEN ORAL) (4 sources) mv-min/folic/K1/ lyco pen/lutein (CENTRUM SILVER MEN ORAL) Take by mouth. Active NON FORMULARY (4 sources) NON FORMULARY Me d Name: oil of oregano Active OIL OF OREGANO PO (19 sources) OIL OF OREGANO P O Take by mouth Active omega-3 acid ethyl esters (alf) 1000 mg oral capsule (19 sources) take 1 capsule by mouth in the morning omega-3 acid ethyl esters (Lovaza) 1 g capsule Take 1 g by mouth in the morning and 1 g before bedtime. Active OXcarbazepine (1 source) Anti-epilepti c Agent Start: 07-06-2019 oxcarbazepine Oral, Refills(s) 0 Start Date: 07/06/19 Status: Ordered Ozempic (0.25 mg or 0.5 mg dose) (1 source) Start: 07-18-2019 Ozempic (0.25 mg or 0.5 mg dose) mg, SubCutaneous, qWeek, Refills(s) 0 Start Date: 07/18/19 Status: Ordered Ozempic, 1 MG/DOSE, 4 MG/3ML solution pen-injector (19 sources) Start: 09-17-2022 Ozempic, 1 MG/ DOSE, 4 MG/3ML solution pen-injector 2 mg 09/17/2022 Active Start: 09-17-2022 Ozempic, 1 MG/ DOSE, 4 MG/3ML solution pen-injector 1 mg. 09/17/2022 Active ramipril 10 mg oral tablet (20 sources) Angiotensin Converting Enzyme Inhibitor Start: 07-06-2019 take 10 mg by mouth once daily ramipril 10 mg, Oral, Daily, Refills(s) 0 Start Date: 07/06/19 Status: Ordered take 1 capsule by mouth in the m orning ramipril (Altace) 10 MG capsule Take 10 mg by mouth in the morning. Active risperiDONE 1 mg oral tablet (19 sources) Atypical Antipsychotic take 1 tablet by mouth in the morning risperiDONE (RisperDAL) 1 MG tablet Take 1 mg by mouth in the morning and 1 mg before bedtime. Active 0.25 mg, 0.5 mg dose 1.5 ml semaglutide 1.34 mg/ml pen injector (4 sources) semaglutide (OZEMPIC) 0.25 mg or 0.5 mg(2 mg/1.5 mL) pen injector Inject under the skin. Active tamsulosin hydrochloride 0.4 mg oral capsule (19 sources) alpha-Adrenergic Hong take 1 capsule by mouth once daily tamsulosin (Flomax) 0.4 MG 24 hr capsule Take 0.4 mg by mouth Daily Active topiramate 25 mg oral tablet (20 sources) Start: 08-31-19 topiramate (Topamax) 25 MG tablet 25 mg 08/31/2023 Active Completed/Discontinued Medications Medication Drug Class(es) Dates Sig (Normalized) Sig (Original) bisacodyl 5 mg delayed release oral tablet (11 sources) Stimulant Laxative Start: 08-05-2023 End: 05-19-2024 take 1 tablet by mouth once daily as needed for constipation bisacodyl (Dulcolax) 5 MG EC tablet Indications: Encounter for screening colonoscopy Take 1 tablet (5 mg) by mouth Daily as needed for constipation Take as directed on colonoscopy prep packet. 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; Translations: [Other hammer toe(s) (acquired), right foot] 02-16-2024 Chronic Asthma (1 source) Asthma 07-06-2019 Chronic Calculus of urinary tract (1 source) Kidney stone 07-06-2019 Episodic Conditions associated with dizziness or vertigo (9 sources) Other peripheral vertigo, unspecified ear; Translations: [Dizziness and giddiness] Onset: 10-27-2023 10-27-2023 Episodic Coronary atherosclerosis and other heart disease (19 sources) Coronary arteriosclerosis; Translations: [Atherosclerotic heart disease of [place] coronary artery without angina pectoris] Onset: 07-20-2015 07-29-2023 Chronic Diabetes mellitus with complications (20 sources) Secondary diabetes mellitus; Translations: [Diabetes mellitus due to underlying condition with unspecified complications] Onset: 07-20-2015 07-29-2023 Chronic Diabetes mellitus without complication (1 source) Diabetes mellitus 07-06-2019 Chronic Essential hypertension (20 sources) Hypertensive disorder; Translations: [Essential (primary) hypertension] Onset: 07-23-2015 07-06-2019 Chronic Genitourinary symptoms and ill-defined conditions [...] genital organs (1 source) Prostatitis 07-06-2019 Episodic Mycoses (3 sources) Onychomycosis; Translations: [Tinea unguium] 01-05-2024 Episodic Other connective tissue disease (2 sources) Pain in left foot; Translations: [Pain in left foot] 02-16-2024 Episodic Other ear and sense organ disorders (1 source) Sensorineural hearing loss, bilateral; Translations: [Sensorineural hearing loss, bilateral] Onset: 10-27-2023 Chronic Other ear and sense organ disorders (3 sources) Sensorineural hearing loss, bilateral; Translations: [Sensorineural hearing loss, bilateral] 10-27-2023 Chronic Other ear and sense organ disorders (1 source) Unspecified disorder of right middle ear and mastoid; Translations: [Unspecified disorder of right middle ear and mastoid] Onset: 12-29-2023 Episodic Other ear and sense organ disorders [...] for malignant neoplasm done] Onset: 08-07-2021 Episodic Superficial injury; contusion (2 sources) Foreign body of foot; Translations: [Superficial foreign body, left foot, initial encounter] 02-16-2024 Episodic Unclassified (1 source) MRI Results Onset: 12-29-2023 Past or Other Problems Problem Classification Problem Date Documented Da te Episodic/Chronic Acquired foot deformities (19 sources) Acquired equinus deformity of foot; Translations: [Other acquired deformities of right foot] Onset: 07-29-2023 07-29-2023 Episodic Deficiency and other anemia (19 sources) Anemia; Translations: [Anemia, unspecified] Onset: 07-20-2015 07-29-2023 Episodic Nonspecific chest pain (19 sources) Chest pain; Translations: [Chest pain, unspecified] Onset: 07-29-2023 07-29-2023 Episodic Other ear and sense organ disorders (3 sources) Bilateral tinnitus; Translations: [Tinnitus, bilateral] 10-27-2023 Episodic Other ear and sense organ disorders (1 source) Ear sensations - finding; Translations: [Other specified disorders of ear, bilateral] 10-27-2023 Episodic Other ear and sense organ disorders (1 source) Disorder of right mastoid; Translations: [Unspecified disorder of right middle ear and mastoid] 12-29-2023 Episodic Other nervous system disorders (2 sources) Ataxia; Translations: [Ataxia, unspecified] 10-27-2023 Episodic Phlebitis; thrombophlebitis and thromboembolism (19 sources) Deep venous thrombosis of lower extremity; Translations: [Acute embolism and thrombosis of unspecified deep veins of unspecified lower extremity] Onset: 07-29-2023 07-29-2023 Episodic Results Test Name Value Interpretation Reference Range Facil ity MR Brain and Internal audito ry canal WO and W contrast IVOrdered By: Grecia Dennison on 12-09-2023 Radiology Study observation (narrative) [facility] Creatinine includes GFR, ser umon 11-11-2023 [facility] MR Brain and Internal audito ry canal WO and W contrast IVOrdered By: Grecia Dennison on 11-11-2023 [facility] Giles 08-21-2023 L Specimen: [id number] Received: 08/24/23 Status: AMBAR Nicholson Num: [id number] Spec Type: Surgical Subm Dr: NON STAFF Tissues: A Colon Biopsy (SPLENIC FLEXURE POLYP) Procedures: HE/2, Gross/Micro L4 Age/ Patient Sex Location Account Attending Physician Ramya Winn 73/M [facility] [id number] NON STAFF SPEC NUM: [id number] RECD: 08/24/23 STATUS: AMBAR NICHOLSON NUM: [id number] ROLAND: 08/21/23-[address]: JARROD STAFF ENTERED: 08/24/[address] [facility] [address]: Victorina,Lab SPEC TYPE: Surgical DEPT: ESEQUIEL [...] x 0.1 cm. Submitted entirely in A1. RG/CYC Clinical history: Splenic flexure polyp at 83 cm, mild sigmoid diverticulosis, path pending CPT Codes 44204 ---- ---- Specimen: [id number] Received: 08/24/23 Status: AMBAR Nicholson Num: [id number] Spec Type: Surgical Subm Dr: JARROD STAFF Tissues: A Colon Biopsy (SPLENIC FLEXURE POLYP) Procedures: HE/2, Gross/Micro L4 ---- Patient: Ramya Winn [id number] (Continued) ---- Signed (signature on file) Jaylyn Funes MD 08/26/23 1148 Normal [facility] Patient Letter FTon 2022 Patient Letter [facility] November 25, 2022 [address] [place] [address] : 1950 Dear Mr. Ramya Winn, We have been trying to reach you [...] [facility] option #3 SENT REGULAR/CERTIFIED MAIL [facility] Screenson 08-06-2022 Screens 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 Your Care Team Attending Physician - Joce RAM MD Primary Care Physician - SANYA RÍOS JR, DO This Is Your Medications [...] Following Appointments Follow Up with RADHA BENAVIDES, Joce Benson, KRISSY When: Where: [facility] [address] [place] [address]- Medications What How Much When Instructions Unchanged [...] Urnls Dip Stick Auto w/o Microscopy POC 17081 (08/04/2022) Bilirubin Urine Dipstick - Negative Blood Urine Dipstick - Negative Glucose Urine Dipstick - 2+ 500 mg/dl Ketones Urine Dipstick - Negative Leukocytes Urine Dipstick - Trace Nitrite Urine Dipstick - Negative Protein Urine Dipstick - Negative Specific [place] Urine Dipstick - 1.010 Urine Appearance Urine [...] If y (more content not included)... 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 Your Care Team Attending Physician - Joce RAM MD Primary Care Physician - SANYA RÍOS JR, DO This Is Your Medications [...] Following Appointments Follow Up with RADHA BENAVIDES, Joce Benson, KRISSY When: Where: [facility] [address], [place] [address]- Medications What How Much When Instructions Unchanged [...] Urnls Dip Stick Auto w/o Microscopy POC 39552 (08/04/2022) Bilirubin Urine Dipstick - Negative Blood Urine Dipstick - Negative Glucose Urine Dipstick - 2+ 500 mg/dl Ketones Urine Dipstick - Negative Leukocytes Urine Dipstick - Trace Nitrite Urine Dipstick - Negative Protein Urine Dipstick - Negative Specific [place] Urine Dipstick - 1.010 Urine Appearance Urine [...] If y (more content not included)... Normal [facility] Patient Educationon 08-05-19 23 Patient Education Oncology [...] of these risk factors: ? Being of -[place] descent. ? Having a family history of [...] Are older than age 55. ? Are -K[place]. ? Have a father, brother, or uncle [...] Document R (more content not included)... Normal [facility] Urology Office/Clinic Noteon 08-04-2022 Urology Office/Clinic Note [...] URL [facility] [address], [place] [address]- Additional Instructions: schedule mri, trus/bx Patient Education Prostate Cancer Screening Renetta Wilkerson, personally scribed for Dr. Ram on 08/04/2022 [...] influenza virus vaccine, (more content not included)... [facility] Comment on above: Result Comment: Elec tronically Signed By: Joce RAM MD\.br\Date and Time Signed: 08/04/22 12:54 EDT\.br\Electronically Co-Signed By: Renetta Lay\.br\Date and Time Co-Signed: 08/04/22 12:53 EDT [facility] 08-01-2022 Lab Reports [id number] CD:127 [facility] Provider Letteron 07-10-2022 Provider Letter July 10, 2022 RAMYA [address]N [address] [place] [address] RAMYA WINN 1950 Dear Ramya, We have [...] [facility] [address] [place] [address] [facility] Vital Signs Date Time Vital Sign Value Performing Clinician Facility 12-02-2024 09:46-0400 Body height 170.2 cm Buzz Cortez DPM Work Phone: [facility] 12-02-2024 09:46-0400 Body mass index (BMI) [Ratio] 34.14 kg/m2 Buzz Cortez DPM Work Phone: [facility] 12-02-2024 09:46-0400 Body weight 98.88 kg Buzz Cortez DPM Work Phone: [facility] 11-04-2024 09:01-0400 Body height 171.5 cm Buzz Cortez DPM Work Phone: [facility] 11-04-2024 09:01-0400 Body mass index (BMI) [Ratio] 33.64 kg/m2 Buzz Cortez DPM Work Phone: [facility] 11-04-2024 09:01-0400 Body weight 98.88 kg Buzz Cortez DPM Work Phone: [facility] 10-27-2024 14:23-0400 Body height 171.5 cm Buzz Cortez DPM Work Phone: [facility] 10-27-2024 14:23-0400 Body mass index (BMI) [Ratio] 33.64 kg/m2 Buzz Cortez DPM Work Phone: [facility] 10-27-2024 14:23-0400 Body weight 98.88 kg Buzz Cortez DPM Work Phone: [facility] 05-19-2024 15:10-0500 Body height 171.5 cm Buzz Cortez DPM Work Phone: [facility] 05-19-2024 15:10-0500 Body mass index (BMI) [Ratio] 35.18 kg/m2 Buzz Cortez DPM Work Phone: [facility] 05-19-2024 15:10-0500 Body weight 103.42 kg Buzz Turnere DPM Work Phone: [facility] 02-16-2024 15:09-0400 Body height 172.7 cm Buzz Turnere DPM Work Phone: [facility] 02-16-2024 15:09-0400 Body mass index (BMI) [Ratio] 39.08 kg/m2 Buzz Cortez DPM Work Phone: [facility] 02-16-2024 15:09-0400 Body weight 116.57 kg Buzz Turnere DPM Work Phone: [facility] 01-05-2024 14:59-0400 Body height 172.7 cm Buzz Turnere DPM Work Phone: [facility] 01-05-2024 14:59-0400 Body mass index (BMI) [Ratio] 39.08 kg/m2 Buzz Turnere DPM Work Phone: [facility] 01-05-2024 14:59-0400 Body weight 116.57 kg Buzz Turnere DPM Work Phone: [facility] 12-29-2023 10:50-0400 Body height 172.7 cm Maggie Mcleod MD Work Phone: [facility] 12-29-2023 10:50-0400 Body mass index (BMI) [Ratio] 37.86 kg/m2 Maggie Mcleod MD Work Phone: [facility] 12-29-2023 10:50-0400 Body temperature 98.4 [degF] Maggie Mcleod MD Work Phone: [facility] 12-29-2023 10:50-0400 Body weight 112.95 kg Maggie Mcleod MD Work Phone: [facility] 08-07-2021 11:33-0400 Blood Pressure Location ALENA RUIZ [facility] 08-07-2021 11:33-0400 Diastolic blood pressure 78 mm[Hg] ALENA RUIZ [facility] 08-07-2021 11:33-0400 Heart rate 68 /min ALENA RUIZ [facility] 08-07-2021 11:33-0400 Respiratory rate 16 /min ALENA RUIZ [facility] 08-07-2021 11:33-0400 Systolic blood pressure 124 mm[Hg] ALENA RUIZ [facility] Encounters Encounter Date Encounter Type Care Provider Facility Start: 12-02-2024 End: 12-02-2024 Bamboo flowsheet Buzz Cortez DPM Work Phone: [facility] Start: 12-02-2024 End: 12-02-2024 Bamboo flowsheet Buzz Cortez DPM Work Phone: [facility] Start: 12-02-2024 End: 12-02-2024 Patient encounter procedure Buzz Cortez DPM Work Phone: [facility] Comment on above: 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, not stated as uncontrolled(250.60) (HCC) (Primary Dx); 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 Start: 12-02-2024 End: 12-02-2024 ambulatory BUZZ CORTEZ Not Available Start: 11-04-2024 End: 11-04-2024 Bamboo flowsheet Buzz Cortez DPM Work Phone: [facility] Start: 11-04-2024 End: 11-04-2024 Bamboo flowsheet Buzz Cortez DPM Work Phone: [facility] Start: 11-04-2024 End: 11-04-2024 Postop follow up visit related to original px Buzz Cortez DPM Work Phone: [facility] Comment on above: 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, not stated as uncontrolled(250.60) ([facility]) (Primary Dx); 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 Start: 11-04-2024 End: 11-04-2024 ambulatory BUZZ CORTEZ Not Available Start: 10-27-2024 End: 10-27-2024 Patient encounter procedure Buzz Cortez DPM Work Phone: [facility] Comment on above: 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, not stated as uncontrolled(250.60) ([facility]) (Primary Dx); Onychomycosis; 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 Start: 10-27-2024 End: 10-27-2024 ambulatory BUZZ CORTEZ Not Available Start: 10-27-2024 End: 10-27-2024 Bamboo flowsheet Buzz Cortez DPM Work Phone: [facility] Start: 10-27-2024 End: 10-27-2024 Bamboo flowsheet Buzz Cortez DPM Work Phone: [facility] Start: 05-19-2024 End: 05-19-2024 Patient encounter procedure Buzz Cortez DPM Work Phone: [facility] Comment on above: 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, not stated as uncontrolled(250.60) ([facility]) (Primary Dx); 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; Onychomycosis Start: 05-19-2024 End: 05-19-2024 ambulatory BUZZ CORTEZ Not Available Start: 05-19-2024 End: 05-19-2024 Bamboo flowsheet Buzz Cortez DPM Work Phone: [facility] Start: 05-19-2024 End: 05-19-2024 Bamboo flowsheet Buzz Cortez DPM Work Phone: [facility] Start: 03-03-2024 End: 03-03-2024 Telephone encounter Buzz Cortez DPM Work Phone: [facility] Comment on above: Advice Only Start: 02-16-2024 End: 02-16-2024 Patient encounter procedure Buzz Cortez DPM Work Phone: [facility] Comment on above: 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, not stated as uncontrolled(250.60) ([facility]) (Primary Dx); 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; Foreign body in left foot, initial encounter; Pain in left foot Start: 02-16-2024 End: 02-16-2024 ambulatory BUZZ CORTEZ Not Available Start: 02-16-2024 End: 02-16-2024 Bamboo flowsheet Buzz Cortez DPM Work Phone: [facility] Start: 02-16-2024 End: 02-16-2024 Bamboo flowsheet Buzz Cortez DPM Work Phone: [facility] Start: 01-19-2024 End: 01-19-2024 Patient encounter procedure Buzz Cortez DPM Work Phone: [facility] Comment on above: 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, not stated as uncontrolled(250.60) ([facility]/H[facility]) (Primary Dx); 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 Start: 01-19-2024 End: 01-19-2024 ambulatory BUZZ CORTEZ Not Available Start: 01-19-2024 End: 01-19-2024 Bamboo flowsheet Buzz Cortez DPM Work Phone: [facility] Start: 01-19-2024 End: 01-19-2024 Bamboo flowsheet Buzz Cortez DPM Work Phone: [facility] Start: 01-05-2024 End: 01-05-2024 Office outpatient visit 15 minutes Buzz Cortez DPM Work Phone: [facility] Comment on above: 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, not stated as uncontrolled(250.60) ([facility]) (Primary Dx); Onychomycosis; 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 Comment on above: Dizziness and giddin ess (Primary Dx); Vertigo; Ataxia; Bilateral tinnitus; Sensorineural hearing loss, bilateral; Mastoid disorder, right Start: 12-29-2023 End: 12-29-2023 ambulatory MAGGIE MCLEOD [facility] Start: 12-09-2023 End: 12-09-2023 Orders Only Maggie Mcleod MD Work Phone: [facility] Start: 10-28-2023 End: 10-28-2023 Telephone encounter Maggie Mcleod MD Work Phone: [facility] Comment on above: Need order for creat inine labs Start: 10-27-2023 End: 10-27-2023 Office outpatient new 45 minutes Maggie Mcleod MD Work Phone: [facility] Comment on above: Dizziness and giddin ess (Primary Dx); Vertigo; Ataxia; Bilateral tinnitus; Sensorineural hearing loss, bilateral; Peripheral vertigo, unspecified laterality Start: 10-27-2023 End: 10-27-2023 ambulatory MAGGIE MCLEOD [facility] Comment on above: Dizziness and giddin ess (Primary Dx); Bilateral tinnitus; Sensation of fullness in ear, bilateral; Sensorineural hearing loss, bilateral Start: 08-21-2023 End: 08-21-2023 ambulatory NON STAFF Facility:[facility] Start: 08-21-2023 End: 08-21-[address] [facility] Work Phone: Start: 08-21-2023 End: 08-21-2023 Departed [address] [facility] Start: 08-04-2022 End: 08-05-2022 ambulatory Joce RAM Facility:[facility] Start: 07-30-2022 End: 07-31-2022 ambulatory ALENA RUIZ Facility:[facility] Start: 08-07-2021 End: 08-07-2021 Patient encounter procedure ALENA RUIZ [facility] Procedures Date Procedure Procedure Detail Performing Clinician Start: 11-11-2023 Mri brain brain stem w/o w/contrast material Scanning Provider External Start: 11-11-2023 Creatinine blood Scanni ng Provider External Start: 07-30-2022 PSA screening ALENA RUIZ Comment on above: Performed By: #### P SAD #### [facility] [address] [place] [address] Dr. Kala Funes Start: 05-11-2009 radio frequency neurotomy ALENA RUIZ Coronary artery bypa ss graft ALENA RUIZ History of operative procedure on knee ALENA RUIZ History of operative procedure on shoulder ALENA RUIZ Prosthetic arthropla sty of the hip ALENA RUIZ Plan of Treatment Date Care Activity Detail Author Start: 03-02-2025 End: 03-02-2025 Patient encounter procedure 03/02/2025 3:15 PM EDT Procedure Visit [facility] [address] [place] [address] Buzz Cortez, FEDERICO [address] [place] [address] [facility] Start: 01-09-2025 Influenza vaccination [facility] Start: 12-28-2024 Adult BMI Screening Adult BMI Screen ing [facility] Start: 12-28-2024 Tobacco Screening Tobacco Screening [facility] Start: 12-02-2024 End: 12-02-2024 Patient encounter procedure 12/02/2024 10:00 AM EDT Office Visit [facility] [address] [place] [address] Buzz Cortez, NAIMAM [address] [place] [address] Arrived [facility] Comment on above: Arrived Start: 11-04-2024 End: 11-04-2024 Patient encounter procedure 11/04/2024 9:30 AM EDT Office Visit [facility] [address] [place] [address] Buzz Cortez, NAIMAM [address] [place] [address] Arrived [facility] Comment on above: Arrived Start: 10-27-2024 End: 10-27-2024 Patient encounter procedure 10/27/2024 3:15 PM EDT Procedure Visit [facility] [address] [place] [address] Buzz Cortez DPAlma [address] [place] [address] Arrived [facility] Comment on above: Arrived Start: 10-26-2024 Tobacco Screening Tobacco Screening [facility] Start: 09-22-2024 End: 09-22-2024 Patient encounter procedure 09/22/2024 3:15 PM EDT Procedure Visit [facility] [address] [place] [address] Buzz Cortez, FEDERICO [address] [place] [address] [facility] Start: 05-19-2024 End: 05-19-2024 Patient encounter procedure [facility] Comment on above: Arrived Start: 03-08-2024 End: 03-08-2024 Patient encounter procedure 03/08/2024 4:15 PM EDT Office Visit [facility] [address] [place] [address] Buzz Cortez, DPAlma [address] [place] [address] [facility] Start: 02-16-2024 End: 02-16-2024 Patient encounter procedure 02/16/2024 3:30 PM EDT Office Visit [facility] [address] [place] [address] Buzz Cortez DPM [address] [place] [address] Arrived [facility] Comment on above: Arrived Start: 01-19-2024 End: 01-19-2024 Patient encounter procedure 01/19/2024 3:00 PM EDT Office Visit [facility] [address] [place] [phone] Buzz Cortez, DPM [address] [place], [place] [id number] Arrived [facility] Comment on above: Arrived Start: 01-10-2024 Influenza vaccination [facility] Start: 01-05-2024 End: 01-05-2024 Patient encounter procedure 01/05/2024 3:15 PM EDT Procedure Visit [facility] [address] [facility] [id number] Buzz Cortez, DPM [address] [place], [place] [id number] Arrived [facility] Comment on above: Arrived Start: 12-29-2023 End: 12-29-2023 Patient encounter procedure 12/29/2023 10:30 AM EDT Office Visit [facility] [address] [place] [phone] Maggie Mcleod MD [address] [place] [address] [address] [place] [address] [facility] Start: 12-21-2023 End: 12-21-2023 Patient encounter procedure 12/21/2023 3:00 PM EDT Office Visit [facility] [address] [place] [address] Maggie Mcleod MD [address] [place] [address] [address] [place] [address] [facility] Start: 10-27-2023 End: 10-26-2024 MR Brain and Internal auditory canal WO and W contrast IV MR brain IAC with and without contrast Imaging Routine Dizziness and giddiness Vertigo Sensorineural hearing loss, bilateral Peripheral vertigo, unspecified laterality Expected: 10/27/2023, Expires: 10/26/2024 [employer] Work Phone: Comment on above: Expected: 10/27/2023 , Expires: 10/26/2024 Start: 01-09-2023 COVID-19 Vaccine ( season) COVID-19 Vaccine ( season) [facility] Start: 04-13-2022 Pneumococcal Vaccine : 65+ Years (3 of 3 - PCV20 or PCV21) Pneumococcal Vaccine: 65+ Years (3 of 3 - PCV20 or PCV21) [facility] Start: 04-13-2022 Pneumococcal Vaccine : 65+ Years (3 of 3 - PPSV23 or PCV20) Pneumococcal Vaccine: 65+ Years (3 of 3 - PPSV23 or PCV20) [facility] Start: 2014 Fall Risk Screening Fall Risk Screen ing [facility] Start: 1999 Administration of varicella zoster vaccine Zoster (Shingles) Vaccine (1 of 2) [facility] Start: 01-03-1968 DTaP,Tdap and Td Vaccines (1 - Tdap) DTaP,Tdap and Td Vaccines (1 - Tdap) [facility] Start: 1967 Adult BMI Follow Up Plan Adult BMI Follow Up Plan [facility] Start: 1967 Adult BMI Screening Adult BMI Screen ing [facility] Start: 1961 Depression Screening Depression Scre ening [facility] Start: 1961 Tobacco Screening Tobacco Screening [facility] Start: 1949 Medicare Annual Well ness Visit Medicare Annual Wellness Visit [facility] Start: 1949 Screening for malign ant neoplasm of colon [facility] End: 10-27-2024 Creatinine includes GFR, serum Creatinine includes GFR, serum Lab Routine Dizziness and giddiness 1 Occurrences starting 10/28/2023 until 10/27/2024 [employer] Work Phone: Comment on above: 1 Occurrences starti ng 10/28/2023 until 10/27/2024 Immunizations Immunization Date Immunization Notes Care Provider Fa juan 04-15-2022 Moderna Bivalent Yeh ster Vaccination Buzz Cortez DPM Work Phone: [facility] 02-14-2019 influenza virus vacc ine, live, attenuated, for intranasal use ALENA RUIZ [facility] 02-14-2019 influenza virus vacc ine, unspecified formulation Maggie Mcleod MD Work Phone: [facility] 04-13-2017 pneumococcal conjuga te vaccine, 13 valent Buzzivan Cortez DPM Work Phone: [facility] 02-16-2017 influenza, injectabl e, quadrivalent, preservative free Buzzgina Cortez DPM Work Phone: [facility] 02-16-2017 influenza virus vacc ine, unspecified formulation Buzz Cortez DPM Work Phone: [facility] 04-14-2012 pneumococcal polysaccharide vaccine, 23 valent Buzz Cortez DPM Work Phone: [facility] Payers Date Payer Category Payer Self-pay 2022 Private Health Insurance [id number] 2022 Unknown [id number] 2011 Medicare [id number] 2011 Medicare [id number] 1959 Medicare [id number] 1959 Unknown [id number] 1949 Unknown [id number] 2.16.84 [id number] 1949 Unknown [id number] 2.16.8 [id number] 1949 Unknown [id number] 2.16.8 [id number] 1949 Unknown [id number] 2.16.8 [id number] 1949 Unknown [id number] 2.16.8 [id number] 1949 Unknown [id number] 2.16.8 [id number] 1949 Unknown [id number] 2.16.8 [id number] 1949 Unknown [id number] 2.16.8 [id number] 1949 Unknown [id number] 2.16.84 [id number] 1949 Unknown [id number] 2.16.84 [id number] 1949 Unknown [id number] 2.16.84 [id number] 1949 Unknown [id number] 2.16.84 [id number] Social History Date Type Detail Facility Start: 08-07-2021 End: 12-14-2022 Tobacco smoking status Never smoked tobacco (finding) [facility] Tobacco smoking status Never [facility] Start: 01-19-2024 End: 11-04-2024 Sex Assigned At Male [facility] Start: 1950 Sex Assigned At Male [facility] Start: 01-19-2024 End: 12-02-2024 Alcoholic beverage intake Ex-drinker (finding) [facility] Start: 01-19-2024 End: 11-04-2024 History of Social function [facility] Start: 12-14-2022 Alcohol Comment Caffeine: 2-3 cups/d ay [facility] Start: 1950 Sex assigned at Not on file P [facility] Start: 10-27-2023 Tobacco use and exposure Smokeless tobacco non-user [facility] Start: 10-27-2023 Alcohol Comment last drink 20+ years ago [facility] Clinical Notes 10-27-2023 to 05-19-2024 Buzz Cortez, NAIMAM - 05/19/2024 3:15 PM ESTTelephone Encounter - [facility] 10:20 AM EDTTelephone [facility] - [facility] 10[facility]20 AM EDTPatient Instructions Note Date & Type Note Facility 05-19-2024 History of Present illness Narrative Images from the original note were not included. Subjective Patient ID: Ramya Winn is a 74 y.o. male who presents for DM Foot Care (Pt is here today requesting diabetic foot care, his nails become painful whn they grow out too long. /BS: 132 A1C: 7.2/LV Dr. Ríos 05-16-2024/SS: 10.5). HPI Established patient returns requesting nail debridement. He states nails are thick, elongated, fungal. He states he has started seeing a new woman, Mary, which has been a nice script editor for him. Review of Systems Medications Current Outpatient Medications: aspirin 81 MG EC tablet, Take 81 mg by mouth in the morning., Disp: , Rfl: atorvastatin (Lipitor) 40 MG tablet, Take 40 mg by mouth in the morning., Disp: , Rfl: carvedilol (Coreg) 6.25 MG tablet, Take 6.25 mg by mouth in the morning and 6.25 mg in the evening. Take with meals., Disp: , Rfl: doxazosin (Cardura) 2 MG tablet, TAKE 1 TABLET BY MOUTH EVERY NIGHT AT BEDTIME. HOLD IF BLOOD PRESSURE IS LESS THAN 100, Disp: , Rfl: finasteride (Proscar) 5 MG tablet, Take 5 mg by mouth in the morning. Do not crush, chew, or split. ., Disp: , Rfl: ipratropium (Atrovent) 17 MCG/ACT inhaler, Inhale., Disp: , Rfl: Y-Vvtebtfxceea-Nfeso-B12-B6 (Metanx) 3-90.314-2-35 MG capsule, Take by mouth., Disp: , Rfl: montelukast (Singulair) 10 MG tablet, Take 10 mg by mouth., Disp: , Rfl: Multiple Vitamin (multivitamin) tablet, Take 1 tablet by mouth in the morning., Disp: , Rfl: Multiple Vitamins-Minerals (CENTRUM SILVER PO), Take by mouth, Disp: , Rfl: OIL OF OREGANO PO, Take by mouth, Disp: , Rfl: omega-3 (FISH OIL) 300 MG capsule, Take by mouth Daily, Disp: , Rfl: omega-3 acid ethyl esters (Lovaza) 1 g capsule, Take 1 g by mouth in the morning and 1 g before bedtime., Disp: , Rfl: Ozempic, 1 MG/DOSE, 4 MG/3ML solution pen-injector, 2 mg, Disp: , Rfl: ramipril (Altace) 10 MG capsule, Take 10 mg by mouth in the morning., Disp: , Rfl: risperiDONE (RisperDAL) 1 MG tablet, Take 1 mg by mouth in the morning and 1 mg before bedtime., Disp: , Rfl: tamsulosin (Flomax) 0.4 MG 24 hr capsule, Take 0.4 mg by mouth Daily, Disp: , Rfl: topiramate (Topamax) 25 MG tablet, 25 mg, Disp: , Rfl: Allergies Patient has no known allergies. Past Surgical History Past Surgical History: Procedure Laterality Date CARDIAC SURGERY 07/16/2015 Heart Double Bypass COLONOSCOPY 11/03/2012 COLONOSCOPY 2005 COLONOSCOPY 08/28/2023 HEART CATH MENISCECTOMY Left 04/25/2008 Torn Meniscus OTHER SURGICAL HISTORY 05/25/2009 Radio Frequency Neurotomy NC REVISE TOTAL HIP REPLACEMENT Bilateral L 12/29/07; R 11/10/07 SHOULDER SURGERY Right 01/15/2006 TUMOR REMOVAL 02/1999 from back of neck VASECTOMY 1984 Family History No family history on file. Objective Physical Exam Cardiovascular: Comments: Pedal pulses: DP 2/4 bilateral, PT 2/4 bilateral. Skin temp is warm to warm. Varicosities: mild, present Hair growth: present Patient wears compression stockings Pulmonary: Effort: Pulmonary effort is normal. Musculoskeletal: General: No tenderness. Right lower leg: Edema present. Left lower leg: Edema present. Comments: JOINT RANGE OF MOTION: AJ dorsiflexion is limited with knee extended and improves with knee flexed. STJ ROM WNL. DEFORMITIES: mild digital contracture. PAIN: none. MUSCLE STRENGTH 5/5 for dorsiflexion, plantarflexion, inversion, eversion. Feet: Comments: Last diabetic foot exam: 01/05/2024 Skin: General: Skin is warm. Capillary Refill: Capillary refill takes 2 to 3 seconds. Findings: No bruising or erythema. Comments: SKIN FINDINGS:red/light purple irregularly shaped, non raised patch of skin noted plantar midfoot, no bigger than a quarter. Pt relates it has been there as long as he can remember. web spaces are clean/dry, no erythema or ecchymosis noted. HYPERKERATOSIS: none. NAIL PATHOLOGY:The R hallux nail is 4mm thick, incurvated, yellow, brittle, with subungal debris. All nails are elongated. SKIN PATHOLOGY: texture, turgor, hair growth, within normal limits. Neurological: Mental Status: He is alert and oriented to person, place, and time. Comments: VIBRATORY: diminished at IPJ, MPJ. intact at medial malleolus. SEMMES-MACHELLE 5.07 MONOFILAMENT: intact at 10/10 sites. NEUROLOGIC: light touch (normal). Patient's symptoms improved with Metanx. Psychiatric: Mood and Affect: Mood normal. Behavior: Behavior normal. Modifier: Q9, [address]645 Assessment/Plan ICD-10-CM 1. Type II or unspecified type diabetes mellitus with neurological manifestations, not stated as uncontrolled(250.60) (CMS/HCC) E11.49 2. 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 M20.41 M20.42 3. Onychomycosis B35.1 Mycotic toenail debridement. All nails debrided in thickness and length. Instrumentation utilized: large and small nail nipper and curette and power bur. Discuss various treatments options including topical therapy vs oral medication. At this time the patient defers these options. Relief of discomfort noted by patient. All nails debrided appropriately. Web spaces inspected and found to be free of disease and ulceration. Shoes inspected and hygiene discussed. Advised to RTO on as needed basis This note was created with the assistance of a speech recognition program. While intending to generate a timely document that accurately reflects the content of the visit, no guarantee can be provided that every grammatical or spelling mistake has been or will be identified or corrected. Thank you for your understanding. Buzz Cortez DPM documented in this encounter [facility] 03-03-2024 Telephone encounter Note Patient is keeping diabetic shoes [facility] 03-03-2024 Miscellaneous Notes Patient is keeping diabetic shoes documented in this encounter [facility] 02-16-2024 History of Present illness Narrative Images from the original note were not included. Subjective Patient ID: Ramya Winn is a 74 y.o. male who presents for Diabetic Shoes (Pt is here today for dispensing of extra depth diabetic shoes from [employer] with Powerstep inserts. He feels they are very comfortable. He is aware of the break-in instructions and will RTO 2-3 weeks for shoe check if necessary /BS: 145). HPI Patient presents for dispensing of diabetic shoes. He is also requesting a new pair of power steps. He would like me to also look at his left foot he states about 1-2 weeks ago he noticed a painful area on the bottom ball of his left foot. He does not recall stepping on anything but is concerned he was a planter's wart. It is painful with ambulation. Review of Systems Medications Current Outpatient Medications: aspirin 81 MG EC tablet, Take 81 mg by mouth in the morning., Disp: , Rfl: atorvastatin (Lipitor) 40 MG tablet, Take 40 mg by mouth in the morning., Disp: , Rfl: carvedilol (Coreg) 6.25 MG tablet, Take 6.25 mg by mouth in the morning and 6.25 mg in the evening. Take with meals., Disp: , Rfl: finasteride (Proscar) 5 MG tablet, Take 5 mg by mouth in the morning. Do not crush, chew, or split. ., Disp: , Rfl: ipratropium (Atrovent) 17 MCG/ACT inhaler, Inhale., Disp: , Rfl: montelukast (Singulair) 10 MG tablet, Take 10 mg by mouth., Disp: , Rfl: Multiple Vitamins-Minerals (CENTRUM SILVER PO), Take by mouth, Disp: , Rfl: OIL OF OREGANO PO, Take by mouth, Disp: , Rfl: omega-3 (FISH OIL) 300 MG capsule, Take by mouth Daily, Disp: , Rfl: Ozempic, 1 MG/DOSE, 4 MG/3ML solution pen-injector, 2 mg, Disp: , Rfl: ramipril (Altace) 10 MG capsule, Take 10 mg by mouth in the morning., Disp: , Rfl: tamsulosin (Flomax) 0.4 MG 24 hr capsule, Take 0.4 mg by mouth Daily, Disp: , Rfl: bisacodyl (Dulcolax) 5 MG EC tablet, Take 1 tablet (5 mg) by mouth Daily as needed for constipation Take as directed on colonoscopy prep packet. (Patient not taking: Reported on 09/01/2023), Disp: 5 tablet, Rfl: 0 doxazosin (Cardura) 2 MG tablet, TAKE 1 TABLET BY MOUTH EVERY NIGHT AT BEDTIME. HOLD IF BLOOD PRESSURE IS LESS THAN 100, Disp: , Rfl: E-Rorsncpjcrzh-Rtsjq-B12-B6 (Metanx) 3-90.314-2-35 MG capsule, Take by mouth., Disp: , Rfl: Multiple Vitamin (multivitamin) tablet, Take 1 tablet by mouth in the morning., Disp: , Rfl: omega-3 acid ethyl esters (Lovaza) 1 g capsule, Take 1 g by mouth in the morning and 1 g before bedtime., Disp: , Rfl: risperiDONE (RisperDAL) 1 MG tablet, Take 1 mg by mouth in the morning and 1 mg before bedtime., Disp: , Rfl: topiramate (Topamax) 25 MG tablet, 25 mg, Disp: , Rfl: Allergies Patient has no known allergies. Past Surgical History Past Surgical History: Procedure Laterality Date CARDIAC SURGERY 07/16/2015 Heart Double Bypass COLONOSCOPY 11/03/2012 COLONOSCOPY 2005 COLONOSCOPY 08/28/2023 HEART CATH MENISCECTOMY Left 04/25/2008 Torn Meniscus OTHER SURGICAL HISTORY 05/25/2009 Radio Frequency Neurotomy NC REVISE TOTAL HIP REPLACEMENT Bilateral L 12/29/07; R 11/10/07 SHOULDER SURGERY Right 01/15/2006 TUMOR REMOVAL 02/1999 from back of neck VASECTOMY 1984 Family History No family history on file. Objective Physical Exam Cardiovascular: Comments: Pedal pulses: DP 2/4 bilateral, PT 2/4 bilateral. Skin temp is warm to warm. Varicosities: mild, present Hair growth: present Patient wears compression stockings Pulmonary: Effort: Pulmonary effort is normal. Musculoskeletal: General: No tenderness. Right lower leg: Edema present. Left lower leg: Edema present. Comments: JOINT RANGE OF MOTION: AJ dorsiflexion is limited with knee extended and improves with knee flexed. STJ ROM WNL. DEFORMITIES: mild digital contracture. PAIN: at the site of foreign body, improved after FB removal MUSCLE STRENGTH 5/5 for dorsiflexion, plantarflexion, inversion, eversion. Feet: Comments: Last diabetic foot exam: 01/05/2024 Skin: General: Skin is warm. Capillary Refill: Capillary refill takes 2 to 3 seconds. Findings: No bruising or erythema. Comments: SKIN FINDINGS: at the central plantar forefoot of the left foot there is a 0.2 x 0.2 cm old hematoma noted. With debridement of the area a small foreign body was removed. The foreign body was small thin metallic and measured 2 mm. With removal of the foreign body there was a small port of entry still present that measured 1 mm in diameter. There is no surrounding erythema, no drainage. red/light purple irregularly shaped, non raised patch of skin noted plantar midfoot, no bigger than a quarter. Pt relates it has been there as long as he can remember. web spaces are clean/dry HYPERKERATOSIS: none. NAIL PATHOLOGY:The R hallux nail is 4mm thick, incurvated, yellow, brittle, with subungal debris. All nails are elongated. SKIN PATHOLOGY: texture, turgor, hair growth, within normal limits. Neurological: Mental Status: He is alert and oriented to person, place, and time. Comments: VIBRATORY: diminished at IPJ, MPJ. intact at medial malleolus. SEMMES-MACHELLE 5.07 MONOFILAMENT: intact at 10/10 sites. NEUROLOGIC: light touch (normal). Patient's symptoms improved with Metanx. Psychiatric: Mood and Affect: Mood normal. Behavior: Behavior normal. Modifier: Q5, 93344 Assessment/Plan ICD-10-CM 1. Type II or unspecified type diabetes mellitus with neurological manifestations, not stated as uncontrolled(250.60) ([facility]) E11.49 2. 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 M20.41 M20.42 3. Foreign body in left foot, initial encounter S90.779N Presents for the dispensing of extra depth diabetic shoes from Dr. Velasco and no inserts as pt wears powersteps. New powersteps were dispensed to him today. The shoes were applied and fit patient well. The shoes are comfortable and appropriate for foot type. Patient is able to apply the shoes independently. Walking in the shoes is comfortable and non irritating. Pt is instructed in the break in period and return policy for the shoes. The Medicare supplier standards regarding DME given. At the time of dispensing, the shoes are suitable and not substandard. A copy of the patient's office records were reviewed and initialed by PCP. On file also is the certifying statement. The patient was advised to wear the shoes at home for only one hour on the first day and to check feet for sores or irritations. Then gradually break into the shoes. RTO in 3 weeks to check the shoes. The old hematoma noted at central plantar forefoot was debrided by me with 15. Blade. Upon further debridement and inspection, a thin metallic foreign body that measured 2mm was removed. Discussed with the patient they there is still a small 1 mm open area at the site of foreign body. Band-Aid with the Amerigel ointment was applied. Patient instructed to change this daily until the area heals. If there is continued pain, redness, swelling, irritation of the area he was instructed to call for further follow-up. Otherwise we will see him back in 3 weeks for shoe check This note was created with the assistance of a speech recognition program. While intending to generate a timely document that accurately reflects the content of the visit, no guarantee can be provided that every grammatical or spelling mistake has been or will be identified or corrected. Thank you for your understanding. Buzz Cortez DPM documented in this encounter [facility] 01-19-2024 History of Present illness Narrative Images from the original note were not included. Subjective Patient ID: Ramya Winn is a 74 y.o. male who presents for No chief complaint on file.. HPI Patient presents for measuring of diabetic shoes. He states he currently is wearing a size 10.5 wide anodyne shoe. He feels that there is too much room in the toe box and he would like to go with a medium width shoe. We will order no inserts, as he wears [employer] Review of Systems Medications Current Outpatient Medications: aspirin 81 MG EC tablet, Take 81 mg by mouth in the morning., Disp: , Rfl: atorvastatin (Lipitor) 40 MG tablet, Take 40 mg by mouth in the morning., Disp: , Rfl: bisacodyl (Dulcolax) 5 MG EC tablet, Take 1 tablet (5 mg) by mouth Daily as needed for constipation Take as directed on colonoscopy prep packet. (Patient not taking: Reported on 09/01/2023), Disp: 5 tablet, Rfl: 0 carvedilol (Coreg) 6.25 MG tablet, Take 6.25 mg by mouth in the morning and 6.25 mg in the evening. Take with meals., Disp: , Rfl: doxazosin (Cardura) 2 MG tablet, TAKE 1 TABLET BY MOUTH EVERY NIGHT AT BEDTIME. HOLD IF BLOOD PRESSURE IS LESS THAN 100, Disp: , Rfl: finasteride (Proscar) 5 MG tablet, Take 5 mg by mouth in the morning. Do not crush, chew, or split. ., Disp: , Rfl: ipratropium (Atrovent) 17 MCG/ACT inhaler, Inhale., Disp: , Rfl: U-Yhhjboompcyh-Zdzyq-B12-B6 (Metanx) 3-90.314-2-35 MG capsule, Take by mouth., Disp: , Rfl: montelukast (Singulair) 10 MG tablet, Take 10 mg by mouth., Disp: , Rfl: Multiple Vitamin (multivitamin) tablet, Take 1 tablet by mouth in the morning., Disp: , Rfl: OIL OF OREGANO PO, Take by mouth, Disp: , Rfl: omega-3 (FISH OIL) 300 MG capsule, Take by mouth Daily, Disp: , Rfl: omega-3 acid ethyl esters (Lovaza) 1 g capsule, Take 1 g by mouth in the morning and 1 g before bedtime., Disp: , Rfl: Ozempic, 1 MG/DOSE, 4 MG/3ML solution pen-injector, 1 mg., Disp: , Rfl: ramipril (Altace) 10 MG capsule, Take 10 mg by mouth in the morning., Disp: , Rfl: risperiDONE (RisperDAL) 1 MG tablet, Take 1 mg by mouth in the morning and 1 mg before bedtime., Disp: , Rfl: tamsulosin (Flomax) 0.4 MG 24 hr capsule, Take 0.4 mg by mouth Daily, Disp: , Rfl: topiramate (Topamax) 25 MG tablet, 25 mg, Disp: , Rfl: Allergies Patient has no known allergies. Past Surgical History Past Surgical History: Procedure Laterality Date CARDIAC SURGERY 07/16/2015 Heart Double Bypass COLONOSCOPY 11/03/2012 COLONOSCOPY 2005 COLONOSCOPY 08/28/2023 HEART CATH MENISCECTOMY Left 04/25/2008 Torn Meniscus OTHER SURGICAL HISTORY 05/25/2009 Radio Frequency Neurotomy NC REVISE TOTAL HIP REPLACEMENT Bilateral L 12/29/07; R 11/10/07 SHOULDER SURGERY Right 01/15/2006 TUMOR REMOVAL 02/1999 from back of neck VASECTOMY 1984 Family History No family history on file. Objective Physical Exam Cardiovascular: Comments: Pedal pulses: DP 2/4 bilateral, PT 2/4 bilateral. Skin temp is warm to warm. Varicosities: mild, present Hair growth: present Patient wears compression stockings Pulmonary: Effort: Pulmonary effort is normal. Musculoskeletal: General: No tenderness. Right lower leg: Edema present. Left lower leg: Edema present. Comments: JOINT RANGE OF MOTION: AJ dorsiflexion is limited with knee extended and improves with knee flexed. STJ ROM WNL. DEFORMITIES: mild digital contracture. PAIN: none. MUSCLE STRENGTH 5/5 for dorsiflexion, plantarflexion, inversion, eversion. Feet: Comments: Last diabetic foot exam: 01/05/2024 Skin: General: Skin is warm. Capillary Refill: Capillary refill takes 2 to 3 seconds. Findings: No bruising or erythema. Comments: SKIN FINDINGS:red/light purple irregularly shaped, non raised patch of skin noted plantar midfoot, no bigger than a quarter. Pt relates it has been there as long as he can remember. web spaces are clean/dry, no erythema or ecchymosis noted. HYPERKERATOSIS: none. NAIL PATHOLOGY:The R hallux nail is 4mm thick, incurvated, yellow, brittle, with subungal debris. All nails are elongated. SKIN PATHOLOGY: texture, turgor, hair growth, within normal limits. Neurological: Mental Status: He is alert and oriented to person, place, and time. Comments: VIBRATORY: diminished at IPJ, MPJ. intact at medial malleolus. SEMMES-MACHELLE 5.07 MONOFILAMENT: intact at 10/10 sites. NEUROLOGIC: light touch (normal). Patient's symptoms improved with Metanx. Psychiatric: Mood and Affect: Mood normal. Behavior: Behavior normal. Modifier: Q9, 14911 Assessment/Plan ICD-10-CM 1. Type II or unspecified type diabetes mellitus with neurological manifestations, not stated as uncontrolled(250.60) (CMS/HCC) E11.49 2. 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 M20.41 M20.42 Pt presents to be measured for extra depth diabetic shoes. The pt was measured by me with Desecuritrexnock device. Measured 11Won the right and 10W on the left. Will order size 10.5M. Pt currently wears 10.5W Anodyne shoe and feels it is too bit at toe box. Patient selected the desired shoes. Our goal is to keep patient walking and minimize the risk of ulcer development and limb loss. We will call pt when shoes arrive. This note was created with the assistance of a speech recognition program. While intending to generate a timely document that accurately reflects the content of the visit, no guarantee can be provided that every grammatical or spelling mistake has been or will be identified or corrected. Thank you for your understanding. Buzz Cortez DPM documented in this encounter [facility] 01-05-2024 History of Present illness Narrative Images from the original note were not included. Subjective Patient ID: Ramya Winn is a 74 y.o. male who presents for Nail care (Ramya Winn is a 74 y.o. male who presents for DM Foot Care PCP: Dr. Ríos 12/28/23, A1C: 7.2, BS: 130, SS: 11). HPI Patient presents requesting nail debridement. He states the nails are elongated, thick, fungal. He had issues with vertigo for about 4 months. In November that improved and then a few days later he fell. He sustained only mild injuries. He is interested in new diabetic shoes. He typically wears powerstep inserts Review of Systems Medications Current Outpatient Medications: aspirin 81 MG EC tablet, Take 81 mg by mouth in the morning., Disp: , Rfl: atorvastatin (Lipitor) 40 MG tablet, Take 40 mg by mouth in the morning., Disp: , Rfl: bisacodyl (Dulcolax) 5 MG EC tablet, Take 1 tablet (5 mg) by mouth Daily as needed for constipation Take as directed on colonoscopy prep packet. (Patient not taking: Reported on 09/01/2023), Disp: 5 tablet, Rfl: 0 carvedilol (Coreg) 6.25 MG tablet, Take 6.25 mg by mouth in the morning and 6.25 mg in the evening. Take with meals., Disp: , Rfl: doxazosin (Cardura) 2 MG tablet, TAKE 1 TABLET BY MOUTH EVERY NIGHT AT BEDTIME. HOLD IF BLOOD PRESSURE IS LESS THAN 100, Disp: , Rfl: finasteride (Proscar) 5 MG tablet, Take 5 mg by mouth in the morning. Do not crush, chew, or split. ., Disp: , Rfl: ipratropium (Atrovent) 17 MCG/ACT inhaler, Inhale., Disp: , Rfl: I-Urfrsgytatyy-Gbcac-B12-B6 (Metanx) 3-90.314-2-35 MG capsule, Take by mouth., Disp: , Rfl: montelukast (Singulair) 10 MG tablet, Take 10 mg by mouth., Disp: , Rfl: Multiple Vitamin (multivitamin) tablet, Take 1 tablet by mouth in the morning., Disp: , Rfl: OIL OF OREGANO PO, Take by mouth, Disp: , Rfl: omega-3 (FISH OIL) 300 MG capsule, Take by mouth Daily, Disp: , Rfl: omega-3 acid ethyl esters (Lovaza) 1 g capsule, Take 1 g by mouth in the morning and 1 g before bedtime., Disp: , Rfl: Ozempic, 1 MG/DOSE, 4 MG/3ML solution pen-injector, 1 mg., Disp: , Rfl: ramipril (Altace) 10 MG capsule, Take 10 mg by mouth in the morning., Disp: , Rfl: risperiDONE (RisperDAL) 1 MG tablet, Take 1 mg by mouth in the morning and 1 mg before bedtime., Disp: , Rfl: tamsulosin (Flomax) 0.4 MG 24 hr capsule, Take 0.4 mg by mouth Daily, Disp: , Rfl: topiramate (Topamax) 25 MG tablet, 25 mg, Disp: , Rfl: Allergies Patient has no known allergies. Past Surgical History Past Surgical History: Procedure Laterality Date CARDIAC SURGERY 07/16/2015 Heart Double Bypass COLONOSCOPY 11/03/2012 COLONOSCOPY 2005 COLONOSCOPY 08/28/2023 HEART CATH MENISCECTOMY Left 04/25/2008 Torn Meniscus OTHER SURGICAL HISTORY 05/25/2009 Radio Frequency Neurotomy NC REVISE TOTAL HIP REPLACEMENT Bilateral L 12/29/07; R 11/10/07 SHOULDER SURGERY Right 01/15/2006 TUMOR REMOVAL 02/1999 from back of neck VASECTOMY 1984 Family History No family history on file. Objective Physical Exam Cardiovascular: Comments: Pedal pulses: DP 2/4 bilateral, PT 2/4 bilateral. Skin temp is warm to warm. Varicosities: mild, present Hair growth: present Patient wears compression stockings Pulmonary: Effort: Pulmonary effort is normal. Musculoskeletal: General: No tenderness. Right lower leg: Edema present. Left lower leg: Edema present. Comments: JOINT RANGE OF MOTION: AJ dorsiflexion is limited with knee extended and improves with knee flexed. STJ ROM WNL. DEFORMITIES: mild digital contracture. PAIN: none. MUSCLE STRENGTH 5/5 for dorsiflexion, plantarflexion, inversion, eversion. Feet: Comments: Last diabetic foot exam: 01/05/2024 Skin: General: Skin is warm. Capillary Refill: Capillary refill takes 2 to 3 seconds. Findings: No bruising or erythema. Comments: SKIN FINDINGS:red/light purple irregularly shaped, non raised patch of skin noted plantar midfoot, no bigger than a quarter. Pt relates it has been there as long as he can remember. web spaces are clean/dry, no erythema or ecchymosis noted. HYPERKERATOSIS: none. NAIL PATHOLOGY:The R hallux nail is 4mm thick, incurvated, yellow, brittle, with subungal debris. All nails are elongated. SKIN PATHOLOGY: texture, turgor, hair growth, within normal limits. Neurological: Mental Status: He is alert and oriented to person, place, and time. Comments: VIBRATORY: diminished at IPJ, MPJ. intact at medial malleolus. SEMMES-MACHELLE 5.07 MONOFILAMENT: intact at 10/10 sites. NEUROLOGIC: light touch (normal). Patient's symptoms improved with Metanx. Psychiatric: Mood and Affect: Mood normal. Behavior: Behavior normal. Modifier: Q9, 88524 Assessment/Plan ICD-10-CM 1. Type II or unspecified type diabetes mellitus with neurological manifestations, not stated as uncontrolled(250.60) (CMS/[facility]) E11.49 2. Onychomycosis B35.1 Reviewed findings of diabetic foot exam with the pt along with diagnosis of peripheral neuropathy and importance of maintaining good control of blood sugars. They are to get into a habit of looking at their feet or have someone look at them. They are to look for any signs of redness, blistering, cracking, swelling, drainage, open lesions etc. They are to dry in-between the toes after each bath or shower gently. They are to refrain from going barefoot. Wear shoes at all times to help protect feet. Shoe gear should be inspected for any foreign objects. Shoes should have a deep wide toe box. With any type of shoe, the feet should be inspected for any signs of pressure, i.e., redness, blistering, or open sores. Will start paperwork for DM shoes. Conservative and palliative care implemented as per request. Under aseptic technique all nails debrided with large and small nail nippers, curette and power alejandro. Onychodebridement in length and thickness with the goals of relief of pain, reducing risks of infection, ulceration or pain. Well tolerated and expresses appreciation for care given. Feet inspected and hygiene discussed This note was created with the assistance of a speech recognition program. While intending to generate a timely document that accurately reflects the content of the visit, no guarantee can be provided that every grammatical or spelling mistake has been or will be identified or corrected. Thank you for your understanding. Buzz Cortez DPM documented in this encounter [facility] 12-29-2023 History of Present illness Narrative Images from the original note were not included. Patient ID: Ramya Winn is a 73 y.o. male. Chief Complaint: Chief Complaint Patient presents with MRI Results History: Ramya Winn is a pleasant 73 y.o. male who presents today for MRI results review. He was last seen in clinic on 10/27/2023. Patient reports vertigo has subsided. He reports he has dizziness for the past 4 months. He recalls his previous medication such as meclizine and topiramate has caused his dizziness.Patient also reports in the past few months he has fell. He reports buzzing in the right ear as well as a high pitched ringing in the left ear. Past History: The following portions of the patient's history were reviewed and updated as appropriate: MEDICATIONS Current Outpatient Medications: aspirin 81 mg chewable tablet, Chew 1 tablet (81 mg total) and swallow in the morning., Disp: , Rfl: atorvastatin (LIPITOR) 40 mg tablet, Take 1 tablet (40 mg total) by mouth in the morning., Disp: , Rfl: carvediloL (COREG) 25 mg tablet, Take 1 tablet (25 mg total) by mouth in the morning and 1 tablet (25 mg total) in the evening. Take with meals., Disp: , Rfl: docosahexaenoic acid/epa (FISH OIL ORAL), , Disp: , Rfl: finasteride (PROSCAR) 5 mg tablet, Take 1 tablet (5 mg total) by mouth in the morning., Disp: , Rfl: ipratropium (ATROVENT) 42 mcg (0.06 %) nasal spray, Administer 2 sprays into each nostril in the morning and 2 sprays at noon and 2 sprays in the evening and 2 sprays before bedtime., Disp: , Rfl: montelukast (SINGULAIR) 10 mg tablet, Take 1 tablet every day by oral route for 90 days., Disp: , Rfl: mv-min/folic/K1/lycopen/lutein (CENTRUM SILVER MEN ORAL), Take by mouth., Disp: , Rfl: NON FORMULARY, Med Name: oil of oregano, Disp: , Rfl: ramipriL (ALTACE) 10 mg capsule, Take 1 capsule (10 mg total) by mouth in the morning., Disp: , Rfl: semaglutide (OZEMPIC) 0.25 mg or 0.5 mg(2 mg/1.5 mL) pen injector, Inject under the skin., Disp: , Rfl: cloNIDine (CATAPRES-TTS) 0.1 mg/24 hr, Place 1 patch on the skin once a week. (Patient not taking: Reported on 12/29/2023), Disp: , Rfl: doxazosin (CARDURA) 2 mg tablet, Take 1 tablet (2 mg total) by mouth nightly. (Patient not taking: Reported on 12/29/2023), Disp: , Rfl: meclizine (ANTIVERT) 12.5 mg tablet, Take 1 tablet (12.5 mg total) by mouth 3 (three) times a day as needed for dizziness. (Patient not taking: Reported on 12/29/2023), Disp: , Rfl: topiramate (TOPAMAX) 25 mg tablet, Take 1 tablet (25 mg total) by mouth in the morning and 1 tablet (25 mg total) before bedtime. (Patient not taking: Reported on 12/29/2023), Disp: , Rfl: ALLERGIES Patient has no known allergies. PAST MEDICAL HISTORY Past Medical History: Diagnosis Date Hypertension PAST SURGICAL HISTORY Past Surgical History: Procedure Laterality Date COLONOSCOPY 08/2023 CORONARY ARTERY BYPASS GRAFT 07/2015 JOINT REPLACEMENT OTHER SURGICAL HISTORY 2001 tumor removed from back REPLACEMENT TOTAL HIP W/ RESURFACING IMPLANTS SHOULDER SURGERY bone repair following accident SOCIAL HISTORY Social History Tobacco Use Smoking status: Never Smokeless tobacco: Never Vaping Use Vaping status: Never Used Substance Use Topics Alcohol use: Not Currently Comment: last drink 20+ years ago Drug use: Never FAMILY HISTORY Family History Problem Relation Age of Onset Heart disease Father Heart disease Sister Cancer Brother colorectal CA Other Brother addiction Cancer Maternal Grandmother colorectal REVIEW OF SYSTEMS Review of Systems Constitutional: Negative for fever and chills. HENT: Positive for tinnitus. Negative for ear discharge and ear pain. Eyes: Negative for redness. Respiratory: Negative for shortness of breath. Cardiovascular: Negative for chest pain. Gastrointestinal: Negative for nausea and vomiting. Skin: Negative for rash. Neurological: Negative for dizziness and headaches. Psychiatric/Behavioral: Negative for confusion. Data Review: MRI 11/11/2023: Physicial Exam: Temp 36.9 C (98.4 F) Ht 172.7 cm (5' 8 ) Wt 112.9 kg (249 lb) BMI 37.86 kg/m Constitution: Patient appears healthy, alert, oriented, with their usual voice, communication, and affect Head and Face: Normocephalic and Atraumatic. Facial nerve function normal Eyes: No Strabismus and EOM normal Ear: external ear normal and canal normal\ Nose and Nasal Cavity: The external appearance, nasal mucosa, septum, and turbinates are unremarkable without drainage or lesion Oral Cavity: The lips, gums and teeth are unremarkable without mass or lesion. Neck: No asymmetry or mass, thyroid normal, no lymphadenopathy. Salivary glands normal. Cranial Nerves: Cranial nerves intact Procedure: None Assessment Impression: Non specific vestibular disorder has subsided Bilateral tinnitus Per MRI right mastoid signal Plan: - Per MRI right mastoid signal - Follow up as needed Visit Diagnosis and Orders: Ramya was seen today for mri results . Diagnoses and all orders for this visit: Dizziness and giddiness Vertigo Ataxia Bilateral tinnitus Sensorineural hearing loss, bilateral Mastoid disorder, right Scribe Statement Scribed for and in the presence of MAGGIE MCLEOD MD by Goldy luna. Provider Statement I MAGGIE MCLEOD MD personally performed the services described in the documentation as described by the above named scribe. It is both accurate and complete at the time of final signature. documented in this encounter [facility] 12-29-2023 Instructions Goldy Sethi - 12/29/2023 10:30 AM EDT - Follow up as needed documented in this encounter [facility] 10-28-2023 Miscellaneous Notes Victorina Bran called 10/27, she needs an order for creatinine for this patient. Pt saw Dr. Mcleod 10/26. Please fax order to . Dr. Mcleod I entered the order and faxed to [facility]. No need to do anything. Thank you documented in this encounter [facility] 10-28-2023 Telephone encounter Note Victorina Bran called 10/27, she needs an order for creatinine for this patient. Pt saw Dr. Mcleod 10/26. Please fax order to . [facility] 10-28-[address] Harsha Wilkerson entered the order and faxed to [facility]. No need to do anything. [facility] 10-28-2023 Telephone encounter Note Thank you [facility] Work Phone: 10-27-2023 History of Present illness Narrative AUDIOLOGIC EVALUATION Reason for visit: CC: Patient reports constant bilateral tinnitus, muffled hearing, and vertigo for the past 4 months. He states that his symptoms seemed to come on overnight. The tinnitus is louder in his right ear. The dizziness, described as true vertigo, has been getting slightly better and occurs when making quick movements. He does not have any issues laying down or rolling over in bed. He feels that he has been talking louder since this has started and feels that his ears are plugged. He has a history of noise exposure. He denies current otalgia, otorrhea, or history of ear surgery. HISTORY: Concerns with hearing: Bilateral Tinnitus: Bilateral, constant, right louder than left Dizziness: Yes Noise Exposure: Yes, occupational, limited/intermittent use of hearing protection devices Aural Fullness: Bilateral Otalgia: No Otorrhea: No Other significant history: None RESULTS: Otoscopic Evaluation: Right Ear: Unremarkable Left Ear: Unremarkable Immittance Measures: Right Ear: Type C Left Ear: Type A Acoustic Reflexes (500, 1000, 2000Hz): Stim Right: Ipsilateral - Absent Contralateral - Absent Stim Left: Ipsilateral - Absent Contralateral - Absent Pure Tone Audiometry: Right Ear: Moderate at 250 Hz rising to normal from 500-2000 Hz sloping to a slight-mild SNHL Left Ear: Mild at 250 Hz rising to WNL through 3000 Hz sloping to a moderate SNHL Asymmetry noted: right ear worse at 250 Hz; left ear worse from 6089-0505 Hz Reliability: good Speech Audiometry: SRT/APPEALS REPRESENTATIVE in good agreement WRS: Right Ear: Excellent (96%) Left Ear: Excellent (100%) RECOMMENDATIONS: Follow up with Dr. Maggie Mcleod Further testing as deemed medically necessary Tlaia Sheridan, [facility] Certified Technician documented in this encounter [facility] Evaluation + Plan note Future Appointments Appointment Date:08/13/2022 10:00:00 AM Scheduled Provider:ALENA RUIZ PA-C Location:[facility] Appointment Type:URO Office Visit Future Scheduled TestsPSA Total 08/07/22 [facility] Evaluation note No assessment inform ation [facility] Work Phone: Evaluation note Diagnosis Type II or unspecified type diabetes mellitus with neurological manifestations, not stated as uncontrolled(250.60) ([facility])- Primary Type II or unspecified type diabetes mellitus with neurological manifestations, not stated as uncontrolled 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 Foreign body in left foot, initial encounter Pain in left foot Pain in soft tissues of limb [facility] Diagnosis Type II or unspecified type diabetes mellitus with neurological manifestations, not stated as uncontrolled(250.60) ([facility])- Primary Type II or unspecified type diabetes mellitus with neurological manifestations, not stated as uncontrolled Onychomycosis Dermatophytosis of nail 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 [facility] Diagnosis Type II or unspecified type diabetes mellitus with neurological manifestations, not stated as uncontrolled(250.60) ([facility])- Primary Type II or unspecified type diabetes mellitus with neurological manifestations, not stated as uncontrolled 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 documented in this encounter [facility]* Diagnosis Type II or unspecified type diabetes mellitus with neurological manifestations, not stated as uncontrolled(250.60) ([facility])- Primary Type II or unspecified type diabetes mellitus with neurological manifestations, not stated as uncontrolled 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 Onychomycosis Dermatophytosis of nail documented in this encounter [facility]* Diagnosis Dizziness and giddiness- Primary Vertigo Dizziness and giddiness Ataxia Lack of coordination Bilateral tinnitus Sensorineural hearing loss, bilateral Peripheral vertigo, unspecified laterality [facility] Dizziness and giddiness- Primary Bilateral tinnitus Sensation of fullness in ear, bilateral Sensorineural hearing loss, bilateral [facility] Diagnosis Dizziness and giddiness- Primary [facility] Diagnosis Dizziness and giddiness- Primary Vertigo Dizziness and giddiness Ataxia Lack of coordination Bilateral tinnitus Sensorineural hearing loss, bilateral Mastoid disorder, right [facility] Diagnosis Type II or unspecified type diabetes mellitus with neurological manifestations, not stated as uncontrolled(250.60) ([facility])- Primary Type II or unspecified type diabetes mellitus with neurological manifestations, not stated as uncontrolled Onychomycosis Dermatophytosis of nail 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 [facility] Diagnosis Type II or unspecified type diabetes mellitus with neurological manifestations, not stated as uncontrolled(250.60) ([facility])- Primary Type II or unspecified type diabetes mellitus with neurological manifestations, not stated as uncontrolled 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 [facility]* Maggie Mcleod MD - 10/27/2023 9:00 AM EDT Images from the original note were not included. Patient ID: Ramya Winn is a 73 y.o. male. Chief Complaint: No chief complaint on file. History: Ramya Winn is a pleasant 73 y.o. male who presents today for vertigo. Today, patient reports experiencing vertigo which onset 4 months ago. He states that he has previously worked with his PCP and pet caretaker to assist in diminishing dizziness such as performing the Melanie maneuver and neck adjustments. He states spells affected him in the morning and reports taking approximately 15 minutes to get hisself out of bed. Patient ambulates with a cane and walker due to unsteadiness. He reports experiencing brief improvement with dizziness, however, states experiencing a general feeling of unsteadiness throughout his body. Spells last for several hours and notesquick head movements as an aggravating factor. Patient closes his eyes to help with dizziness He notes that he experiences some hearing loss due to occupational noise exposure. Denies otalgia and otorrhea. Endorses ear infection history and tinnitus. Notes tinnitus is a low humming sound. Denies ear surgery history and headache history. During today's examination, dizziness onset. Onset of dizziness started this morning and with audiology appointment. Past History: The following portions of the patient's history were reviewed and updated as appropriate: MEDICATIONS Current Outpatient Medications: aspirin 81 mg chewable tablet, Chew 1 tablet (81 mg total) and swallow in the morning., Disp: , Rfl: atorvastatin (LIPITOR) 40 mg tablet, Take 1 tablet (40 mg total) by mouth in the morning., Disp: , Rfl: carvediloL (COREG) 25 mg tablet, Take 1 tablet (25 mg total) by mouth in the morning and 1 tablet (25 mg total) in the evening. Take with meals., Disp: , Rfl: cloNIDine (CATAPRES-TTS) 0.1 mg/24 hr, Place 1 patch on the skin once a week., Disp: , Rfl: docosahexaenoic acid/epa (FISH OIL ORAL), , Disp: , Rfl: doxazosin (CARDURA) 2 mg tablet, Take 1 tablet (2 mg total) by mouth nightly., Disp: , Rfl: finasteride (PROSCAR) 5 mg tablet, Take 1 tablet (5 mg total) by mouth in the morning., Disp: , Rfl: ipratropium (ATROVENT) 42 mcg (0.06 %) nasal spray, Administer 2 sprays into each nostril in the morning and 2 sprays at noon and 2 sprays in the evening and 2 sprays before bedtime., Disp: , Rfl: meclizine (ANTIVERT) 12.5 mg tablet, Take 1 tablet (12.5 mg total) by mouth 3 (three) times a day as needed for dizziness., Disp: , Rfl: mv-min/folic/K1/lycopen/lutein (CENTRUM SILVER MEN ORAL), Take by mouth., Disp: , Rfl: NON FORMULARY, Med Name: oil of oregano, Disp: , Rfl: ramipriL (ALTACE) 10 mg capsule, Take 1 capsule (10 mg total) by mouth in the morning., Disp: , Rfl: semaglutide (OZEMPIC) 0.25 mg or 0.5 mg(2 mg/1.5 mL) pen injector, Inject under the skin., Disp: , Rfl: topiramate (TOPAMAX) 25 mg tablet, Take 1 tablet (25 mg total) by mouth in the morning and 1 tablet(25 mg total) before bedtime., Disp: , Rfl: montelukast (SINGULAIR) 10 mg tablet, Take 1 tablet every day by oral route for 90 days., Disp: , Rfl: ALLERGIES Patient has no known allergies. PAST MEDICAL HISTORY Past Medical History: Diagnosis Date Hypertension PAST SURGICAL HISTORY Past Surgical History: Procedure Laterality Date COLONOSCOPY 08/2023 CORONARY ARTERY BYPASS GRAFT 07/2015 JOINT REPLACEMENT OTHER SURGICAL HISTORY 2001 tumor removed from back REPLACEMENT TOTAL HIP W/ RESURFACING IMPLANTS SHOULDER SURGERY bone repair following accident SOCIAL HISTORY Social History Tobacco Use Smoking status: Never Smokeless tobacco: Never Vaping Use Vaping status: Never Used Substance Use Topics Alcohol use: Not Currently Comment: last drink 20+ years ago Drug use: Never FAMILY HISTORY Family History Problem Relation Age of Onset Heart disease Father Heart disease Sister Cancer Brother colorectal CA Other Brother addiction Cancer Maternal Grandmother colorectal REVIEW OF SYSTEMS Review of Systems Eyes: Negative for visual disturbance. Respiratory: Negative for cough and shortness of breath. Cardiovascular: Negative for chest pain and chest discomfort. Gastrointestinal: Positive for nausea. Negative for vomiting. Endocrine: Negative for cold intolerance and heat intolerance. Genitourinary: Negative for difficulty urinating. Musculoskeletal: Positive for gait problem. Skin: Negative for rash. Allergic/Immunologic: Negative for food allergies. Neurological: Positive for dizziness (lightheaded, room spinning, unsteadiness). Negative for headaches. Hematological: Does not bruise/bleed easily. Data Review: Audiogram 10/27/2023: Physicial Exam: There were no vitals taken for this visit. Constitution: Patient appears healthy, alert, oriented, with their usual voice, communication, and affect Head and Face: Normocephalic and Atraumatic. Facial nerve function normal Eyes: No Strabismus and EOM normal Ear: external ear normal, canal normal, and TM normal without fluid or infection Nose and Nasal Cavity: The external appearance, nasal mucosa, septum, and turbinates are unremarkable without drainage or lesion Oral Cavity: The lips, gums and teeth are unremarkable without mass or lesion. Neck: No asymmetry or mass, thyroid normal, no lymphadenopathy. Salivary glands normal. Cranial Nerves: Cranial nerves intact with exception of cranial nerve VIII Procedure: Microscopic Examination Pre Op Diagnosis: Vertigo Post Op Diagnosis: Same Procedure: Otologic Microscopic Examination Surgeon: Maggie Mcleod MD Consent: Verbal Consent was obtained prior to the procedure. Anesthesia: None Complications: none Procedure: In a reclined position, using an otologic microscope, the examination was performed. Findings: See the findings recorded under the physical examination. Assessment Impression: Non specific vestibular disorder Bilateral tinnitus Plan: - Results from audiogram completed prior to today's visit were reviewed, it indicated sensorineuralhearing loss. - Microscopic examination was completed in office today. The ears appear generally healthy. - It is recommended to complete further imaging to rule out abnormalities. MR brain IAC ordered today. - Tinnitus management strategies such as using a white noise maker, low level tv/radio, or fan to help mask the tinnitus when bothersome. It is also recommended to avoid caffeine, alcohol, tobacco, salt, high dose NSAIDs, and to increase hydration. - Vestibular therapy is beneficial for patients who experiences dizziness and imbalance associated with vertigo and Meniere's dizziness. A referral to vestibular therapy placed for vertigo. Deary Hallpike maneuver negative during physical examination. - Discussed how imbalance may be associated with the natural aging process. - Meclizine/Antivert may offset some associated symptoms. These medications however will not address root of dizzy spells. - Follow-up after completion of MRI Visit Diagnosis and Orders: Diagnoses and all orders for this visit: Dizziness and giddiness - MR brain IAC with and without contrast; Future Vertigo - [facility] - [place], [place] - MR brain IAC with and without contrast; Future - Ambulatory referral to Vestibular Rehab; Future Ataxia - [facility] - [place], [place] Bilateral tinnitus - [facility] [place], [place] Sensorineural hearing loss, bilateral - MR brain IAC with and without contrast; Future Peripheral vertigo, unspecified laterality - MR brain IAC with and without contrast; Future Scribe Statement Scribed for and in the presence of MAGGIE MCLEOD MD by cheryl Martin. Provider Statement I MAGGIE MCLEOD MD personally performed the services described in the documentation as described by the above named scribe. It is both accurate and complete at the time of final signature. Zaira Villalobos MA 10/27/23 0809 documented in [facility] Narrative* Buzz Cortez DPM - 10/27/2024 3:15 PM EDT Images from the original note were not included. Subjective Patient ID: Ramya Winn is a 74 y.o. male who presents for Nail care (Ramya Winn is a 74 y.o. male. Pt is here today requesting diabetic foot care. BS: 136 A1C: 6.8/LV Dr. Ríos 10/13/2024/SS: 10.5). HPI Patient presents complaining of elongated nails, some are fungal. Requesting nail debridement today. He is also requesting to start the diabetic shoe process. Last shoes dispensed were from 2022 Review of Systems Medications Current Outpatient Medications: aspirin 81 MG EC tablet, Take 81 mg by mouth in the morning., Disp: , Rfl: atorvastatin (Lipitor) 40 MG tablet, Take 40 mg by mouth in the morning., Disp: , Rfl: carvedilol (Coreg) 6.25 MG tablet, Take 6.25 mg by mouth in the morning and 6.25 mg in the evening.Take with meals., Disp: , Rfl: doxazosin (Cardura) 2 MG tablet, TAKE 1 TABLET BY MOUTH EVERY NIGHT AT BEDTIME. HOLD IF BLOOD PRESSURE IS LESS THAN 100, Disp: , Rfl: finasteride (Proscar) 5 MG tablet, Take 5 mg by mouth in the morning. Do not crush, chew, or split.., Disp: , Rfl: ipratropium (Atrovent) 17 MCG/ACT inhaler, Inhale., Disp: , Rfl: I-Omwfhnnzttpq-Cauxh-B12-B6 (Metanx) 3-90.314-2-35 MG capsule, Take by mouth., Disp: , Rfl: montelukast (Singulair) 10 MG tablet, Take 10 mg by mouth., Disp: , Rfl: Multiple Vitamin (multivitamin) tablet, Take 1 tablet by mouth in the morning., Disp: , Rfl: Multiple Vitamins-Minerals (CENTRUM SILVER PO), Take by mouth, Disp: , Rfl: OIL OF OREGANO PO, Take by mouth, Disp: , Rfl: omega-3 (FISH OIL) 300 MG capsule, Take by mouth Daily, Disp: , Rfl: omega-3 acid ethyl esters (Lovaza) 1 g capsule, Take 1 g by mouth in the morning and 1 g before bedtime., Disp: , Rfl: Ozempic, 1 MG/DOSE, 4 MG/3ML solution pen-injector, 2 mg, Disp: , Rfl: ramipril (Altace) 10 MG capsule, Take 10 mg by mouth in the morning., Disp: , Rfl: risperiDONE (RisperDAL) 1 MG tablet, Take 1 mg by mouth in the morning and 1 mg before bedtime., Disp: , Rfl: tamsulosin (Flomax) 0.4 MG 24 hr capsule, Take 0.4 mg by mouth Daily, Disp: , Rfl: topiramate (Topamax) 25 MG tablet, 25 mg, Disp: , Rfl: Allergies Patient has no known allergies. Past Surgical History Past Surgical History: Procedure Laterality Date CARDIAC SURGERY 07/16/2015 Heart Double Bypass COLONOSCOPY 11/03/2012 COLONOSCOPY 2005 COLONOSCOPY 08/28/2023 HEART CATH MENISCECTOMY Left 04/25/2008 Torn Meniscus OTHER SURGICAL HISTORY 05/25/2009 Radio Frequency Neurotomy NC REVISE TOTAL HIP REPLACEMENT Bilateral L 12/29/07; R 11/10/07 SHOULDER SURGERY Right 01/15/2006 TUMOR REMOVAL 02/1999 from back of neck VASECTOMY 1984 Family History No family history on file. Objective Physical Exam Cardiovascular: Comments: Pedal pulses: DP 2/4 bilateral, PT 2/4 bilateral. Skin temp is warm to warm. Varicosities: mild, present Hair growth: present Patient wears compression stockings Pulmonary: Effort: Pulmonary effort is normal. Musculoskeletal: General: No tenderness. Right lower leg: Edema present. Left lower leg: Edema present. Comments: JOINT RANGE OF MOTION: AJ dorsiflexion is limited with knee extended and improves with knee flexed. STJ ROM WNL. DEFORMITIES: mild digital contracture. PAIN: none. MUSCLE STRENGTH 5/5 for dorsiflexion, plantarflexion, inversion, eversion. Feet: Comments: Last diabetic foot exam: 10/27/2024 Skin: General: Skin is warm. Capillary Refill: Capillary refill takes 2 to 3 seconds. Findings: No bruising or erythema. Comments: SKIN FINDINGS:red/light purple irregularly shaped, non raised patch of skin noted plantarmidfoot, no bigger than a quarter. Pt relates it has been there as long as he can remember. web spaces are clean/dry, no erythema or ecchymosis noted. HYPERKERATOSIS: none. NAIL PATHOLOGY:The R hallux nail is 4mm thick, incurvated, yellow, brittle, with subungal debris. All nails are elongated. SKIN PATHOLOGY: texture, turgor, hair growth, within normal limits. Neurological: Mental Status: He is alert and oriented to person, place, and time. Comments: VIBRATORY: diminished at IPJ, MPJ. intact at medial malleolus. SEMMES-MACHELLE 5.07 MONOFILAMENT: intact at 10/10 sites. NEUROLOGIC: light touch (normal). Patient's symptoms improved with Metanx. Psychiatric: Mood and Affect: Mood normal. Behavior: Behavior normal. Modifier: Q7, 88427 Assessment/Plan ICD-10-CM 1. Type II or unspecified type diabetes mellitus with neurological manifestations, not stated as uncontrolled(250.60) ([facility]) E11.49 2. Onychomycosis B35.1 3. 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 M20.41 M20.42 All mycotic nails were debrided in length and thickness by manual and mechanical means. Small and large nail nipper used along with electronic alejandro. Advised patient of proper foot care to prevent anyfuture complications. Return as needed if problems arise This note was created with the assistance of a speech recognition program. While intending to generate a timely document that accurately reflects the content of the visit, no guarantee can be provided that every grammatical or spelling mistake has been or will be identified or corrected. Thank you for your understanding. Buzz Cortez DPM documented in this encounterN[facility] HealthcareHistory of Present illness Narrative * Buzz Cortez DPM - 11/04/2024 9:30 AM EDT Images from the original note were not included. Subjective Patient ID: Ramya Winn is a 74 y.o. male who presents for Shoe Measure (Ramya Winn is a 74 y.o. male. Pt is here to be measured for shoes. BS: 139 A1C: 6.8/LV Dr. Ríos 10/13/2024/SS: 10.5). HPI Patient presents for measuring of diabetic shoes. He does typically get a new pair of power steps with dispensing of shoes. Review of Systems Medications Current Outpatient Medications: aspirin 81 MG EC tablet, Take 81 mg by mouth in the morning., Disp: , Rfl: atorvastatin (Lipitor) 40 MG tablet, Take 40 mg by mouth in the morning., Disp: , Rfl: carvedilol (Coreg) 6.25 MG tablet, Take 6.25 mg by mouth in the morning and 6.25 mg in the evening.Take with meals., Disp: , Rfl: doxazosin (Cardura) 2 MG tablet, TAKE 1 TABLET BY MOUTH EVERY NIGHT AT BEDTIME. HOLD IF BLOOD PRESSURE IS LESS THAN 100, Disp: , Rfl: finasteride (Proscar) 5 MG tablet, Take 5 mg by mouth in the morning. Do not crush, chew, or split.., Disp: , Rfl: ipratropium (Atrovent) 17 MCG/ACT inhaler, Inhale., Disp: , Rfl: Z-Ivgfnjmrcxbk-Yndks-B12-B6 (Metanx) 3-90.314-2-35 MG capsule, Take by mouth., Disp: , Rfl: montelukast (Singulair) 10 MG tablet, Take 10 mg by mouth., Disp: , Rfl: Multiple Vitamin (multivitamin) tablet, Take 1 tablet by mouth in the morning., Disp: , Rfl: Multiple Vitamins-Minerals (CENTRUM SILVER PO), Take by mouth, Disp: , Rfl: OIL OF OREGANO PO, Take by mouth, Disp: , Rfl: omega-3 (FISH OIL) 300 MG capsule, Take by mouth Daily, Disp: , Rfl: omega-3 acid ethyl esters (Lovaza) 1 g capsule, Take 1 g by mouth in the morning and 1 g before bedtime., Disp: , Rfl: Ozempic, 1 MG/DOSE, 4 MG/3ML solution pen-injector, 2 mg, Disp: , Rfl: ramipril (Altace) 10 MG capsule, Take 10 mg by mouth in the morning., Disp: , Rfl: risperiDONE (RisperDAL) 1 MG tablet, Take 1 mg by mouth in the morning and 1 mg before bedtime., Disp: , Rfl: tamsulosin (Flomax) 0.4 MG 24 hr capsule, Take 0.4 mg by mouth Daily, Disp: , Rfl: topiramate (Topamax) 25 MG tablet, 25 mg, Disp: , Rfl: Allergies Patient has no known allergies. Past Surgical History Past Surgical History: Procedure Laterality Date CARDIAC SURGERY 07/16/2015 Heart Double Bypass COLONOSCOPY 11/03/2012 COLONOSCOPY 2005 COLONOSCOPY 08/28/2023 HEART CATH MENISCECTOMY Left 04/25/2008 Torn Meniscus OTHER SURGICAL HISTORY 05/25/2009 Radio Frequency Neurotomy NC REVISE TOTAL HIP REPLACEMENT Bilateral L 12/29/07; R 11/10/07 SHOULDER SURGERY Right 01/15/2006 TUMOR REMOVAL 02/1999 from back of neck VASECTOMY 1984 Family History No family history on file. Objective Physical Exam Cardiovascular: Comments: Pedal pulses: DP 2/4 bilateral, PT 2/4 bilateral. Skin temp is warm to warm. Varicosities: mild, present Hair growth: present Patient wears compression stockings Pulmonary: Effort: Pulmonary effort is normal. Musculoskeletal: General: No tenderness. Right lower leg: Edema present. Left lower leg: Edema present. Comments: JOINT RANGE OF MOTION: AJ dorsiflexion is limited with knee extended and improves with knee flexed. STJ ROM WNL. DEFORMITIES: mild digital contracture. PAIN: none. MUSCLE STRENGTH 5/5 for dorsiflexion, plantarflexion, inversion, eversion. Feet: Comments: Last diabetic foot exam: 10/27/2024 Skin: General: Skin is warm. Capillary Refill: Capillary refill takes 2 to 3 seconds. Findings: No bruising or erythema. Comments: SKIN FINDINGS:red/light purple irregularly shaped, non raised patch of skin noted plantarmidfoot, no bigger than a quarter. Pt relates it has been there as long as he can remember. web spaces are clean/dry, no erythema or ecchymosis noted. HYPERKERATOSIS: none. NAIL PATHOLOGY:The R hallux nail is 4mm thick, incurvated, yellow, brittle, with subungal debris. All nails are elongated. SKIN PATHOLOGY: texture, turgor, hair growth, within normal limits. Neurological: Mental Status: He is alert and oriented to person, place, and time. Comments: VIBRATORY: diminished at IPJ, MPJ. intact at medial malleolus. SEMMES-MACHELLE 5.07 MONOFILAMENT: intact at 10/10 sites. NEUROLOGIC: light touch (normal). Patient's symptoms improved with Metanx. Psychiatric: Mood and Affect: Mood normal. Behavior: Behavior normal. Modifier: Q9, 07551 Assessment/Plan ICD-10-CM 1. Type II or unspecified type diabetes mellitus with neurological manifestations, not stated as uncontrolled(250.60) ([facility]) E11.49 2. 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 M20.41 M20.42 Pt presents to be measured for extra depth diabetic shoes. Patient remains very active and requestspowerstep inserts when new shoes are dispensed. The pt was measured by me with Desecuritrexnock device. Measured 11W on the right and 10.5W on the left. Patient is currently wearing a 10.5 medium width shoe in the same style and wishes to order the same style, only different color. I explained we measured him at 11W today. He prefers we order the same size he is wearing currently. Will order size 10.5M. Patient selected the desired shoes. Patient selected the desired shoes. Our goal is to keep patient walking and minimize the risk of ulcer development and limb loss This note was created with the assistance of a speech recognition program. While intending to generate a timely document that accurately reflects the content of the visit, no guarantee can be provided that every grammatical or spelling mistake has been or will be identified or corrected. Thank you for your understanding. Buzz Cortez DPM documented in this encounterNOW[facility] HealthcareHistory of Present illness Narrative * Buzz Cortez DPM - 12/02/2024 10:00 AM EDT Images from the original note were not included. Subjective Patient ID: Ramya Winn is a 74 y.o. male who presents for Diabetic Shoes (Pt is here today for dispensing of extra depth diabetic shoes from [facility] with one pair of powersteps. He states they are comfortable. He is aware of the break-in period and can call to cancel his three week shoe check apptif there aren't any problems /BS: 109). HPI Patient presents for dispensing of diabetic shoes, no inserts. He requests a new pair of power steps with dispensing of shoes. Review of Systems Medications Current Outpatient Medications: aspirin 81 MG EC tablet, Take 81 mg by mouth in the morning., Disp: , Rfl: atorvastatin (Lipitor) 40 MG tablet, Take 40 mg by mouth in the morning., Disp: , Rfl: carvedilol (Coreg) 6.25 MG tablet, Take 6.25 mg by mouth in the morning and 6.25 mg in the evening.Take with meals., Disp: , Rfl: doxazosin (Cardura) 2 MG tablet, TAKE 1 TABLET BY MOUTH EVERY NIGHT AT BEDTIME. HOLD IF BLOOD PRESSURE IS LESS THAN 100, Disp: , Rfl: finasteride (Proscar) 5 MG tablet, Take 5 mg by mouth in the morning. Do not crush, chew, or split.., Disp: , Rfl: ipratropium (Atrovent) 17 MCG/ACT inhaler, Inhale., Disp: , Rfl: P-Aajymqqgrjxu-Qwgsu-B12-B6 (Metanx) 3-90.314-2-35 MG capsule, Take by mouth., Disp: , Rfl: montelukast (Singulair) 10 MG tablet, Take 10 mg by mouth., Disp: , Rfl: Multiple Vitamin (multivitamin) tablet, Take 1 tablet by mouth in the morning., Disp: , Rfl: Multiple Vitamins-Minerals (CENTRUM SILVER PO), Take by mouth, Disp: , Rfl: OIL OF OREGANO PO, Take by mouth, Disp: , Rfl: omega-3 (FISH OIL) 300 MG capsule, Take by mouth Daily, Disp: , Rfl: omega-3 acid ethyl esters (Lovaza) 1 g capsule, Take 1 g by mouth in the morning and 1 g before bedtime., Disp: , Rfl: Ozempic, 1 MG/DOSE, 4 MG/3ML solution pen-injector, 2 mg, Disp: , Rfl: ramipril (Altace) 10 MG capsule, Take 10 mg by mouth in the morning., Disp: , Rfl: risperiDONE (RisperDAL) 1 MG tablet, Take 1 mg by mouth in the morning and 1 mg before bedtime., Disp: , Rfl: tamsulosin (Flomax) 0.4 MG 24 hr capsule, Take 0.4 mg by mouth Daily, Disp: , Rfl: topiramate (Topamax) 25 MG tablet, 25 mg, Disp: , Rfl: Allergies Patient has no known allergies. Past Surgical History Past Surgical History: Procedure Laterality Date CARDIAC SURGERY 07/16/2015 Heart Double Bypass COLONOSCOPY 11/03/2012 COLONOSCOPY 2005 COLONOSCOPY 08/28/2023 HEART CATH MENISCECTOMY Left 04/25/2008 Torn Meniscus OTHER SURGICAL HISTORY 05/25/2009 Radio Frequency Neurotomy NC REVISE TOTAL HIP REPLACEMENT Bilateral L 12/29/07; R 11/10/07 SHOULDER SURGERY Right 01/15/2006 TUMOR REMOVAL 02/1999 from back of neck VASECTOMY 1984 Family History No family history on file. Objective Physical Exam Cardiovascular: Comments: Pedal pulses: DP 2/4 bilateral, PT 2/4 bilateral. Skin temp is warm to warm. Varicosities: mild, present Hair growth: present Patient wears compression stockings Pulmonary: Effort: Pulmonary effort is normal. Musculoskeletal: General: No tenderness. Right lower leg: Edema present. Left lower leg: Edema present. Comments: JOINT RANGE OF MOTION: AJ dorsiflexion is limited with knee extended and improves with knee flexed. STJ ROM WNL. DEFORMITIES: mild digital contracture. PAIN: none. MUSCLE STRENGTH 5/5 for dorsiflexion, plantarflexion, inversion, eversion. Feet: Comments: Last diabetic foot exam: 10/27/2024 Skin: General: Skin is warm. Capillary Refill: Capillary refill takes 2 to 3 seconds. Findings: No bruising or erythema. Comments: SKIN FINDINGS:red/light purple irregularly shaped, non raised patch of skin noted plantarmidfoot, no bigger than a quarter. Pt relates it has been there as long as he can remember. web spaces are clean/dry, no erythema or ecchymosis noted. HYPERKERATOSIS: none. NAIL PATHOLOGY:The R hallux nail is 4mm thick, incurvated, yellow, brittle, with subungal debris. All nails are elongated. SKIN PATHOLOGY: texture, turgor, hair growth, within normal limits. Neurological: Mental Status: He is alert and oriented to person, place, and time. Comments: VIBRATORY: diminished at IPJ, MPJ. intact at medial malleolus. SEMMES-MACHELLE 5.07 MONOFILAMENT: intact at 10/10 sites. NEUROLOGIC: light touch (normal). Patient's symptoms improved with Metanx. Psychiatric: Mood and Affect: Mood normal. Behavior: Behavior normal. Modifier: Q9, 28461 Assessment/Plan ICD-10-CM 1. Type II or unspecified type diabetes mellitus with neurological manifestations, not stated as uncontrolled(250.60) ([facility]) E11.49 2. 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 M20.41 M20.42 Presents for the dispensing of extra depth diabetic shoes from Dr. Velasco and no inserts as pt wears powerstep orthotics. New pair of powerstep inserts were dispensed to him today. The shoes were applied and fit patient well. The shoes are comfortable and appropriate for foot type. Patient is ableto apply the shoes independently. Walking in the shoes is comfortable and non irritating. Pt is instructed in the break in period and return policy for the shoes. The Medicare supplier standards regarding DME given. At the time of dispensing, the shoes are suitable and not substandard. A copy of the patient's office records were reviewed and initialed by PCP. On file also is the certifying statement. The patient was advised to wear the shoes at home for only one hour on the first day and to check feet for sores or irritations. Then gradually break into the shoes. RTO in 3 weeks to check the shoes. This note was created with the assistance of a speech recognition program. While intending to generate a timely document that accurately reflects the content of the visit, no guarantee can be provided that every grammatical or spelling mistake has been or will be identified or corrected. Thank you for your understanding. Buzz Cortez DPM documented in this [facility] course Narrative No data available for this section [facility] Discharge instructions No data available for this section [facility] Instructions* Patient Instructions* Taryn Gema - 10/27/2023 9:00 AM EDT - Results from audiogram completed prior to today's visit were reviewed, it indicated sensorineuralhearing loss. - Microscopic examination was completed in office today. The ears appear generally healthy. - It is recommended to complete further imaging to rule out abnormalities. MR brain IAC ordered today. - Tinnitus management strategies such as using a white noise maker, low level tv/radio, or fan to help mask the tinnitus when bothersome. It is also recommended to avoid caffeine, alcohol, tobacco, salt, high dose NSAIDs, and to increase hydration. - Vestibular therapy is beneficial for patients who experiences dizziness and imbalance associated with vertigo and Meniere's dizziness. A referral to vestibular therapy placed for vertigo. Gisel Hallpike maneuver negative during physical examination. - Discussed how imbalance may be associated with the natural aging process. - Meclizine/Antivert may offset some associated symptoms. These medications however will not address root of dizzy spells. - Follow-up after completion of MRI documented in this [facility] SystemInstructionsNot on file documented in this [facility]Pro[facility] SystemInstructionsNot on file documented in this encounterProBl[facility] SystemInstructionsNot on file documented in this encounterProBl[facility] SystemReason for referral (narrative)* Consultation (Routine) - Pending Review Specialty Diagnoses / Procedures Referred By Patsy membreno Referred To Contact Diagnoses Vertigo Maggie Mcleod MD [address] [place] [address] [address] [place] [address] Referral ID Status Reason Start Date Expiration Date V isits Requested Visits Authorized [id number] Pending Review 10/27/2023 10/26/2024 1 1 * Diagnostic Imaging (Routine) - Pending Review Specialty Diagnoses / Procedures Referred By Patsy membreno Referred To Contact Radiology Diagnoses Dizziness and giddiness Vertigo Sensorineural hearing loss, bilateral Peripheral vertigo, unspecified laterality Procedures MR brain IAC with and without contrast Maggie Mcleod MD [address] [place] [address] [address] [place], [place] [id number] Referral ID Status Reason Start Date Expiration Date V isits Requested Visits Authorized [id number] Pending Review 10/27/2023 10/26/2024 1 1 [facility] for visit Narrative* Consultation (Routine) - Pending Review Specialty Diagnoses / Procedures Referred By Contac t Referred To Contact Otolaryngology Diagnoses Vertigo Ataxia Bilateral tinnitus Sanya Ríos Jr., DO [address] [place] [address] Maggie Mcleod MD [address] [place] [address] [address] [place] [address] Referral ID Status Reason Start Date Expiration Date Visits Requested Visits Authorized [id number] Pending Review Specialty Services Required 09/29/2023 09/28/2024 1 1 [facility] Summary Purpose Family History No Family History [...] and content) DATE CREATED AUTHOR 08/03/2022 [facility] DATE CREATED AUTHOR AUTHOR'S ORGANIZ ATION 11/25/2022 [facility] DATE CREATED AUTHOR AUTHOR'S ORGANIZ ATION 08/27/2023 [facility] DATE CREATED AUTHOR AUTHOR'S ORGANIZ ATION 12/30/2023 [facility] DATE CREATED AUTHOR AUTHOR'S ORGANIZ ATION 12/03/2024 [facility] EPIC Care Teams (unrecognized sec tion and content) Team Status: Inactive Member Role Status Dates NON STAFF Attending Provider Active Start: Ap ril 2023 End: August 21, 2023 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 Start Date End Date Sanya Ríos MD [address] [place] [id number] PCP - General Internal Medicine 10/09/22 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 Start Date End Date Sanya Ríos MD [address] [place] [id number] PCP - General Internal Medicine 10/09/22 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 Start Date End Date Sanya Ríos MD [address] [place] [address], [place] [address] PCP - General Internal Medicine 10/09/22 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 Start Date End Date Sanya Ríos MD [address] [place] [id number] PCP - General Internal Medicine 10/09/22 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 Start Date End Date Sanya Ríos MD [address] [place] [id number] PCP - General Internal Medicine 10/09/22 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 Start Date End Date Sanya Ríos MD [address] [place] [id number] PCP - General Internal Medicine 10/09/22 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 He feels they are very comfortable. He is aware of the break-in instructions and will RTO 2-3 weeks for shoe check if necessary BS: 145 Reason Onset Date Comments Advice Only 03/03/2024 Reason Comments Nail care Ramya Winn is a 74 y.o. male who presents for DM Foot Care PCP: Dr. Ríos 12/28/23, A1C: 7.2, BS: 130, SS: 11 Reason Comments DM Foot Care Pt is here today req uesting diabetic foot care, his nails become painful whn they grow out too long. BS: 132 A1C: 7.2LV Dr. Ríos 05-16-2024SS: 10.5 Reason Onset Date Comments Need order for creatinine labs 10/28/2023 Reason Comments MRI Results Reason Comments Nail care Ramya Winn is a 74 y.o. male. Pt is here today requesting diabetic foot care. BS: 136 A1C: 6.8/LV Dr. Ríos 10/13/2024/SS: 10.5 Reason Comments Shoe Measure Ramya Winn is a 74 y.o. male. Pt is here to be measured for shoes. BS: 139 A1C: 6.8/LV Dr. Ríos 10/13/2024/SS: 10.5 Reason Comments Diabetic Shoes Pt is here today for dispensing of extra depth diabetic shoes from [employer] with one pair of powersteps. He states they are comfortable. He is aware of the break-in period and can call to cancel his three week shoe check appt if there aren't any problems BS: 109 FOR RECORDS PERTAINING TO PATIENTS WHO ARE [...] BE BASED ON THE PRIMARY CLINICAL RECORDS. [employer] provides no warranty or guarantee of the accuracy or completeness of information in this document.
[2024-12-07 11:02] LABS: Prostate Specific Antigen Dx 0.36 ng/mL (<=4.00)
== END 2024-12-07 08:48 | disposition home or self-care (01) ==
LOC: LAB 08:50
PROVIDERS: PCP Internal Medicine; Visit Provider Urology
DX: N40.1 Benign prostatic hyperplasia with lower urinary tract symptoms (principal)
CPT/HCPCS: 36415; 84153